=== PATIENT | male | born 1985 | race Caucasian/White ===

== ENCOUNTER 2018-06-29 18:37 | Inpatient (IN) | END 2018-07-01 17:30 | disposition left against medical advice (07) | DRG 720 | DX: A41.9 Sepsis, unspecified organism (principal); N17.0 Acute kidney failure with tubular necrosis; J69.0 Pneumonitis due to inhalation of food and vomit; G93.41 Metabolic encephalopathy; L89.159 Pressure ulcer of sacral region, unspecified stage; D63.8 Anemia in other chronic diseases classified elsewhere; E87.6 Hypokalemia; E83.42 Hypomagnesemia; F11.10 Opioid abuse, uncomplicated; F15.10 Other stimulant abuse, uncomplicated; F17.210 Nicotine dependence, cigarettes, uncomplicated; Z59.0 Homelessness; N18.9 Chronic kidney disease, unspecified; Z86.14 Personal history of Methicillin resistant Staphylococcus aureus infection ==

== ENCOUNTER 2021-03-14 13:49 | Inpatient (IN) | payer OTHER ==
[~2021-03-14] VITALS: Ht 182.9 cm; Wt 64.9 kg
--- NOTE | 2021-03-14 13:52 | NUR ---
PT CASSY FROM HIS TRAILER HOME C/O BLE PAIN WORST TO LLE W/ NOTED NON HEALING WOUND. PT IS AN IV DRUG USER W/ HX OF KIDNEY INFECTION WAS GETTING DIALYSIS 3 YEARS AGO. PT GOWNED AND PLACED ON MONITOR. AFEBRILE BRICK MOLDER HAND. AWAITING MD GALLOWAY.
--- NOTE | 2021-03-14 14:25 | NUR ---
DR STODDARD AT BEDSIDE FOR EVAL.
[2021-03-14] MEDS ORDERED: VANCOMYCIN 1 GM in IV D5W 250 ML IV ONE (14:30)
[2021-03-14] MEDS ORDERED: CEFTRIAXONE 1GM BAG (ER ONLY) 50 ML IV ONE ×2 (14:30→15:11)
[2021-03-14] MEDS ORDERED: IV NS 0.9% 1,000 ML BAG IV ONE (14:30)
--- NOTE | 2021-03-14 14:47 | NUR ---
U/S TECH AT BEDSIDE FOR DUPLEX ULTRASOUND.
[2021-03-14 15:11] LABS: BASOPHILS % (AUTO) 0.2 % (0.0-2.0); HEMATOCRIT 39 % (39-51); HEMOGLOBIN 12.2 g/dL (13.5-17.5); LYMPHOCYTES # (AUTO) 0.5 K/uL (0.8-4.8); LYMPHOCYTES % (AUTO) 2.5 % (20.0-44.0); MEAN CORPUSCULAR HGB CONC 32 g/dl (31.0-36.0); MEAN CORPUSCULAR VOLUME 73 fL (80-96); MONOCYTES # (AUTO) 0.9 K/uL (0.1-1.30); MONOCYTES % (AUTO) 4.2 % (2.0-12.0); NEUTROPHILS # (AUTO) 19.2 K/uL (1.8-8.9); NEUTROPHILS % (AUTO) 93.1 % (43.0-81.0); PLATELET COUNT (AUTO) 284 K/uL (150-450); WHITE BLOOD COUNT (AUTO) 20.6 K/uL (4.3-11.0)
[2021-03-14 15:34] LABS: ALBUMIN 2.5 g/dL (3.4-5.0); BILIRUBIN,DIRECT 0.2 mg/dL (0.0-0.2); BILIRUBIN,TOTAL 0.6 mg/dL (0.2-1.0); CALCIUM, SERUM 8.2 mg/dL (8.5-10.1); CREATININE 7.4 mg/dL (0.6-1.3); POTASSIUM 5.5 mmol/L (3.5-5.1); TOTAL PROTEIN, SERUM 8.5 g/dL (6.4-8.2)
[2021-03-14 16:27] LABS: BAND % (MANUAL) 12 % (0.0-5.0); LYMPHOCYTES % (MANUAL) 7 % (16-48); MONOCYTES % (MANUAL) 1 % (0-11.0); NEUTROPHILS % (MANUAL) 80 (42-76)
--- NOTE | 2021-03-14 16:40 | NUR ---
CALLED DR. RED [phone] STODDARD.
[2021-03-14] MEDS ORDERED: MAG HYDROX/AL HYDROX/SIMETH 30 ML UDC PO PRN (17:30)
[2021-03-14] MEDS ORDERED: ACETAMINOPHEN 325 MG TABLET PO PRN (17:30)
[2021-03-14] MEDS ORDERED: ZOLPIDEM TARTRATE 5 MG TABLET PO PRN (17:30)
[2021-03-14] MEDS ORDERED: HYDROCODONE/APAP 5/325MG TABLET PO PRN (17:30)
[2021-03-14] MEDS ORDERED: MAGNESIUM HYDROXIDE 30 ML UDC PO PRN (17:30)
[2021-03-14 17:51] LABS: BILIRUBIN,URINE SMALL (NEGATIVE); COLOR,URINE AMBER (YELLOW); LEUKOCYTE ESTERASE ,URINE Negative (NEGATIVE); NITRITE, URINE Negative (NEGATIVE); PH,URINE 5.5 (5.0-8.0); PROTEIN,URINE 100 mg/dl (NEGATIVE); UGLUCOSE 100 MG/DL mg/dL (NEGATIVE); UROBILINOGEN,URINE 0.2 EU/dL (0.2)
[2021-03-14] MEDS ORDERED: SODIUM POLYSTYRENE SULFONATE 15 G/60 ML BOTTLE PO ONE (18:00)
--- NOTE | 2021-03-14 18:10 | NUR ---
GOT BED ASSIGNMENT 107 AFTER THE CHANGE OF SHIFT PER HOUSE SUP.
[2021-03-14 18:17] LABS: BACTERIA,URINE Few /HPF (None Seen); COARSE GRANULAR CASTS,URINE Few /LPF (None Seen); SQUAMOUS EPITHELIAL CELL,UR Few /HPF (None Seen); URINE AMORPHOUS URATE Few /HPF (None Seen); WBC,URINE 0-2 /HPF (0-3)
[2021-03-14] MEDS ORDERED: MORPHINE SULFATE INJ 4 MG/ML DISP.SYRIN ONE (18:29)
[2021-03-14] MEDS ORDERED: CLINDAMYCIN IV RTU IN D5W 600 MG/50 ML PIGGYBACK IV SCH (18:30)
[2021-03-14] MEDS ORDERED: SODIUM POLYSTYRENE SULFONATE 15 G/60 ML BOTTLE ONE (18:30)
[2021-03-14] MEDS: MORPHINE SULFATE INJ 2 MG/ML DISP.SYRIN IV PRN (18:36)
[2021-03-14] MEDS ORDERED: ONDANSETRON HCL/PF 4 MG/2 ML VIAL ONE (18:39)
[2021-03-14] MEDS: ONDANSETRON HCL/PF 4 MG/2 ML VIAL IVP PRN (18:40)
--- NOTE | 2021-03-14 18:41 | NUR ---
03/14/2021 CM received notification patient is in need of HLOC . CM faxed referral to [facility] and [facility] per hospitalist request .
--- NOTE | 2021-03-14 19:35 | NUR ---
REPORT GIVEN TO AJIT LUQUE FOR JAMEY
--- NOTE | 2021-03-14 19:56 | NUR ---
ADMIT NOTE RECEIVED PATIENT FROM ER, TRANSFERRED TO ROOM 107. PATIENT IS AWAKE, ALERT, ORIENTED X3. ABLE TO MAKE NEEDS KNOWN. ON O2 2L VIA NASAL CANNULA, O2 SAT 98%. NO ACUTE RESPIRATORY DISTRESS NOTED. COMPLAINED OF MILD PAIN ON LOWER EXTREMITIES. SKIN ASSESSMENT DONE, NOTED WITH RIGHT LEG CELLULITIS AND EDEMA, RIGHT POSTERIOR LEG BLISTERS, LEFT LEG 10X6.5 CM WOUND AND EDEMA, RIGHT LOWER BACK ABRASION, AND RIGHT ARM SCAR. IV ACCESS ON LEFT AC #20 PATENT AND INTACT. NO SIGNS OF INFILTRATION. ORIENTED PATIENT TO STAFF, ROOM, AND CALL LIGHT. BED LOCKED AND IN LOWEST POSITION. CALL LIGHT WITHIN REACH. ALL NEEDS ANTICIPATED. Addendum: 03/15/21 at 0239 by ROLAND JANSEN RN PATIENT ADMITTED 03/14/211955. PROTONIX TAB 1800 NON-ADMINISTERED, PATIENT WAS STILL IN ER.
[2021-03-14] MEDS: PANTOPRAZOLE 40 MG TABLET.DR PO SCH (20:00)
[2021-03-14] MEDS ORDERED: PIPERACILLIN /TAZOBACTAM 2.25 G in IV D5W 50 ML IV SCH (20:00)
[2021-03-14] MEDS ORDERED: PIPERACILLIN /TAZOBACTAM 2.25 G VIAL IV ONE (20:51)
[2021-03-14] MEDS ORDERED: CLINDAMYCIN 900 MG/6 ML VIAL ONE (20:52)
[2021-03-14] MEDS: IV NS 0.9% 1,000 ML IV PRN (20:58)
[2021-03-14] MEDS: CLINDAMYCIN 900 MG in IV D5W 50 ML IV SCH (20:59)
[2021-03-14] MEDS: HEPARIN SODIUM, PORCINE 5000 UNITS/1 ML VIAL SQ SCH (21:08)
[2021-03-14] MEDS: PIPERACILLIN /TAZOBACTAM 2.25 G in IV D5W 50 ML IV SCH (21:44)
[2021-03-15] VITALS (26 sets, daily range): BP systolic 92–137; BP diastolic 39–77
[2021-03-15] MEDS: ONDANSETRON HCL/PF 4 MG/2 ML VIAL IVP PRN (02:37)
[2021-03-15] MEDS: MORPHINE SULFATE INJ 2 MG/ML DISP.SYRIN IV PRN ×3 (02:44→08:02)
[2021-03-15] MEDS ORDERED: PIPERACILLIN /TAZOBACTAM 2.25 G VIAL IV ONE (04:37)
[2021-03-15] MEDS: PIPERACILLIN /TAZOBACTAM 2.25 G in IV D5W 50 ML IV SCH ×3 (04:38→23:59)
[2021-03-15] MEDS: CLINDAMYCIN 900 MG in IV D5W 50 ML IV SCH ×3 (05:13→23:58)
--- NOTE | 2021-03-15 07:13 | NUR ---
RN NOTE PATIENT IS ALERT AND ORIENTED X3.ON O2 2L VIA NASAL CANNULA, O2 SAT 98%. NO SOB NOTED. IV ACCESS ON LEFT AC #20 PATENT AND INTACT. NO SIGNS OF INFILTRATION. ALL DUE MEDS GIVEN ORDERED. NEEDS ATTENDED PROMPTLY. BED LOCKED AND IN LOWEST POSITION. CALL LIGHT WITHIN REACH. WILL ENDORSE TO AM SHIFT.
[2021-03-15 07:18] LABS: BASOPHILS % (AUTO) 0.2 % (0.0-2.0); EOSINOPHILS % (AUTO) 0.2 % (0.0-6.0); HEMATOCRIT 32 % (39-51); HEMOGLOBIN 10.1 g/dL (13.5-17.5); LYMPHOCYTES # (AUTO) 0.6 K/uL (0.8-4.8); LYMPHOCYTES % (AUTO) 4.2 % (20.0-44.0); MEAN CORPUSCULAR HGB CONC 32 g/dl (31.0-36.0); MEAN CORPUSCULAR VOLUME 74 fL (80-96); MONOCYTES # (AUTO) 0.9 K/uL (0.1-1.30); MONOCYTES % (AUTO) 5.9 % (2.0-12.0); NEUTROPHILS # (AUTO) 13.5 K/uL (1.8-8.9); NEUTROPHILS % (AUTO) 89.5 % (43.0-81.0); PLATELET COUNT (AUTO) 219 K/uL (150-450); WHITE BLOOD COUNT (AUTO) 15.1 K/uL (4.3-11.0)
[2021-03-15 07:47] LABS: CALCIUM, SERUM 7.7 mg/dL (8.5-10.1); MAGNESIUM 2.4 mg/dL (1.8-2.4); PHOSPHORUS 7.3 mg/dL (2.5-4.9); POTASSIUM 5.6 mmol/L (3.5-5.1)
[2021-03-15 07:48] LABS: CREATININE 7.6 mg/dL (0.6-1.3)
[2021-03-15 07:49] LABS: THYROID STIMULATING HORMONE 1.098 uIU/mL (0.358-3.74)
[2021-03-15] MEDS: PANTOPRAZOLE 40 MG TABLET.DR PO SCH (07:50)
--- NOTE | 2021-03-15 07:58 | NUR ---
WOUND CARE CONSULT: PT PRESENTS WITH OPEN AREAS TO RT SIDE OF BACK, LARGE WOUND TO LEFT LOWER LEG AND SWELLING, TENDERNESS AND DISCOLORATION TO RT LOWER LEG, ALL PRESENT ON ADMISSION. SURGICAL AND DPM CONSULTS CALLED TO DR BA AND DR ESPINOZA. RECOMMENDATIONS MADE FOR SKIN PROTECTION. DISCUSSED WITH NURSING STAFF. DUE TO PT DISCOMFORT AND NAUSEA, PT NOT TURNED FOR FULL ASSESSMENT OF SKIN AT THIS TIME. MD IN AGREEMENT WITH PLAN OF CARE. Addendum: 03/15/21 at 0803 by ISABELLE LAKHANI WNDNU Amended: Links added.
[2021-03-15] MEDS: HEPARIN SODIUM, PORCINE 5000 UNITS/1 ML VIAL SQ SCH (09:00)
--- NOTE | 2021-03-15 09:47 | NUR ---
RECEIVED PATIENT SLEEPING IN BED, EASY TO AROUSE, C/O PAIN GIVEN PRN MORPHINE, EFFECTIVE AFTER 15 MIN, WOUND CARE CONSULT PERFORMED AND ASSESSED DISCUSSED TO TRANSFER OUT TO MORE SPECIALIZED UNIT FOR CARE, IN PROCESS OF MD, RIP SAW OPERATOR AND MBA INTERNSHIP TO TRANSFER PT OUT TO HIGHER ACUTE LEVEL OF CARE TO MEET NEEDS - BEING RESEARCHED FOR LOCATION OF WHERE TO TRANSFER AT THIS TIME, PT PRESENTS WITH OPEN AREAS TO RT SIDE OF BACK, LARGE WOUND TO LEFT LOWER LEG AND SWELLING NOTED, TENDERNESS AND DISCOLORATION TO RT LOWER LEG, ALL PRESENT ON ADMISSION, WILL CONTINUE CARE UNTIL DESTINATION OF TRANSFER IS CONFIRMED.
[2021-03-15] MEDS ORDERED: HYDROMORPHONE INJ 2 MG/ML DISP.SYRIN ONE (11:28)
[2021-03-15] MEDS ORDERED: INSULIN REGULAR, HUMAN 100 UNIT/ML 10 ML VIAL IV ONE (11:30)
[2021-03-15] MEDS ORDERED: Calcium Gluconate 1GM/10ML 4.65 MEQ in IV D5W 50 ML IV ONE (11:30)
[2021-03-15] MEDS ORDERED: DEXTROSE 50%-WATER 50 ML DISP.SYRIN IVP ONE (11:30)
[2021-03-15] MEDS ORDERED: SODIUM BICARBONATE SYR 50 MEQ/50 ML DISP.SYRIN IV ONE (11:30)
--- NOTE | 2021-03-15 11:50 | NUR ---
RN NOTES RECEIVED PT FROM ROOM 107 TO ICU ROOM 258, PT IS A/Ox3, ON 4L O2 NC , O2 SAT WNL, ON TELE SR HR IN 80'S , IVF NS AT 75CC/HR RUNNING VIA L AC IV SITE G 20 , PT IS NPO FOR SURGERY AND HD CATH PLACEMENT AT THIS TIME, SR UP x3 , CALL LIGHT WITHIN EASY REACH, BED LOCKED AND IN LOWEST POSITION, CONTINUE TO MONITOR.
[2021-03-15] MEDS ORDERED: HYDROMORPHONE INJ 2 MG/ML DISP.SYRIN IV PRN (12:00)
[2021-03-15] MEDS: IV NS 0.9% 1,000 ML IV PRN (12:03)
[2021-03-15] MEDS ORDERED: ROCURONIUM BROMIDE 50 MG/5 ML ONE ×2 (12:12)
[2021-03-15] MEDS ORDERED: ANESTHESIA TRAY IN PYXIS 1 EA TRAY MC ONE (12:15)
[2021-03-15] MEDS ORDERED: LIDOCAINE 1% INJ 50 ML MDV IJ ONE (12:16)
[2021-03-15] MEDS ORDERED: BUPIVACAINE MPF 0.5% W/EPI INJ 30 ML VIAL ONE (12:16)
[2021-03-15] MEDS ORDERED: FENTANYL PF 250MCG/5ML AMPUL ONE (12:24)
--- NOTE | 2021-03-15 12:30 | NUR ---
RN NOTES PT GOING TO OR AT THIS TIME .
[2021-03-15] MEDS ORDERED: FAMOTIDINE/PF INJ 20 MG/2 ML VIAL IV ONE (12:45)
[2021-03-15] MEDS ORDERED: HYDROMORPHONE INJ 2 MG/ML DISP.SYRIN IV ONE (13:00)
[2021-03-15 14:59] LABS: CALCIUM, SERUM 7.4 mg/dL (8.5-10.1); POTASSIUM 4.6 mmol/L (3.5-5.1)
[2021-03-15 15:00] LABS: CREATININE 7.7 mg/dL (0.6-1.3)
[2021-03-15 15:05] LABS: ALBUMIN 1.5 g/dL (3.4-5.0); BILIRUBIN,TOTAL 0.7 mg/dL (0.2-1.0); TOTAL PROTEIN, SERUM 5.9 g/dL (6.4-8.2)
[2021-03-15 15:21] LABS: MAGNESIUM 2.6 mg/dL (1.8-2.4); PHOSPHORUS 7.5 mg/dL (2.5-4.9)
[2021-03-15] MEDS: Sodium Bicarbonate 50 MEQ in IV D5/0.45 NACL 1,000 ML IV SCH ×2 (15:23→21:07)
--- NOTE | 2021-03-15 15:23 | NUR ---
RN NOTES RECEIVED PT FROM OR , INTUBATED, TOLERATING VENT SETTING WELL, O2 SAT WNL, ON TELE SR-ST , R NECK IJ HD CATH AND LEFT AC IV SITES CLEAN, DRY AND INTACT , BICARB DRIP AT 200CC/HR RUNNING , PROPOFOL AT 5 MCG/KG /MIN RUNNING FOR SEDATION , MILD AGITATION NOTED, BETTS INSERTED PER MD ORDER , DRESSING TO FLOR[place], LE WITH AC WRAP ON IT , CLEAN , DRY AND INTACT, SR UP x3, CALL LIGHT WITHIN EASY REACH , BED LOCKED AND IN LOWEST POSITION, CONTINUE TO MONITOR.
--- NOTE | 2021-03-15 15:40 | NUR ---
RT PATIENT REC'D ORALLY INTUBATED FROM POST OP OR. ETT 7.0 SECURED AT 23CM TOP LIP. PLACED ON [facility] VENT PER MD ORDERS. ALARMS CHECKED + AUDIBLE. AMBU BAG AT [facility]. AIRWAY CLEAR AND PATENT, NO SECRETIONS. Addendum: 03/15/21 at 1726 by JARED JAIN RT Amended: Links added.
[2021-03-15] MEDS: PROPOFOL 100 ML IV PRN ×2 (15:42→21:09)
--- NOTE | 2021-03-15 15:58 | NUR ---
SS note SS received consult request for homelessness. SS will follow up at a later time.
[2021-03-15 16:57] LABS: ABG BASE EXCESS -10.2 mmol/L; ABG OXYGEN SATURATION 99.5 % (92.0-98.5); ABG PCO2 32.2 mmHg (35.0-45.0); ABG PH 7.295 (7.350-7.450); ABG PO2 214.6 mmHg (75.0-100.0); AaDO2 33.6 mmHg; COHb 0.5 % (0.5-1.5); MetHb 0.3 % (0.0-1.5); O2Hb 98.7 % (94.0-97.0); SITE, ABG Right Radial
--- NOTE | 2021-03-15 18:13 | NUR ---
RN NOTES PT REMAINS INTUBATED AND SEDATED, ON DIPRIVAN AT 30 MCG/KG/MIN , BICARB DRIP AT 200CC/HR , TOLERAING VENT SETTING WELL, O2 SAT WNL, DRESSING TO FLOR[place] LE CLEAN, DRY AND INTACT, NO DISTRESS NOTED , WILL ENDORSE TO ANIMAL CARE SUPERVISOR NURSE FOR CONTINUITY OF CARE.
--- NOTE | 2021-03-15 19:51 | NUR ---
PHONOGRAPH NEEDLE TIP MAKER.INITIAL ASSESSMENT.RECEIVED THE PT REST ON THE BED. ORALLY INTUBATED. SEDATED WITH PROPOFOL ETT #7-0, LIP 23CMS,AC 16,TV 550, PEEP 5. SAT 98%. COMPLAINT OPERATOR SHOWING SNR. IV LT AC 20G, RT IJ HD CATH.FC PATENT. HOB ELEVATED. FC PATENT. PROPOFOL 30MCG/KG/MIN, IVF D51/2NS 200ML/H. FLORENCE SOFT WRIST RESTRAINT CHECKED AND RELEASED.NO INJURY OR REDNESS NOTED.
--- NOTE | 2021-03-15 19:57 | NUR ---
RECEIVED PT INTUBATED 7.0 ETT SECURED AT 23CM. NO RESP DISTRESS. PT TOLERATING VENT SETTINGS. SX'D SMALL CLEAR THIN SECRETIONS. VENT ALARMS SET AND AUDIBLE. AMBU BAG AT BEDSIDE. Addendum: 03/15/21 at 1959 by KYAW DANIEL RT Amended: Links added.
[2021-03-15] MEDS: IV NS 0.9% 250 ML IV PRN (21:07)
--- NOTE | 2021-03-15 21:29 | NUR ---
rn picu. blood culture result notified md mcfarlane. no new order received.
[2021-03-16] VITALS (43 sets, daily range): BP systolic 86–132; BP diastolic 50–76
[2021-03-16] MEDS: HEPARIN SODIUM, PORCINE 5000 UNITS/1 ML VIAL SQ SCH ×3 (00:04→21:00)
--- NOTE | 2021-03-16 02:02 | NUR ---
rn picu. hd done. no fluid removed.
[2021-03-16] MEDS: PROPOFOL 100 ML IV PRN (02:07)
[2021-03-16] MEDS: Sodium Bicarbonate 50 MEQ in IV D5/0.45 NACL 1,000 ML IV SCH ×3 (02:51→22:01)
[2021-03-16] MEDS: ONDANSETRON HCL/PF 4 MG/2 ML VIAL IVP PRN (02:55)
[2021-03-16 04:24] LABS: CALCIUM, SERUM 7.1 mg/dL (8.5-10.1); CREATININE 6.1 mg/dL (0.6-1.3); POTASSIUM 4.5 mmol/L (3.5-5.1)
[2021-03-16] MEDS: PIPERACILLIN /TAZOBACTAM 2.25 G in IV D5W 50 ML IV SCH ×3 (04:29→19:25)
[2021-03-16] MEDS: CLINDAMYCIN 900 MG in IV D5W 50 ML IV SCH ×3 (04:29→21:57)
[2021-03-16 04:55] LABS: BASOPHILS % (AUTO) 0.2 % (0.0-2.0); EOSINOPHILS % (AUTO) 0.1 % (0.0-6.0); LYMPHOCYTES # (AUTO) 0.4 K/uL (0.8-4.8); LYMPHOCYTES % (AUTO) 2.3 % (20.0-44.0); MEAN CORPUSCULAR HGB CONC 34 g/dl (31.0-36.0); MEAN CORPUSCULAR VOLUME 71 fL (80-96); MONOCYTES # (AUTO) 0.9 K/uL (0.1-1.30); MONOCYTES % (AUTO) 5.1 % (2.0-12.0); NEUTROPHILS # (AUTO) 15.6 K/uL (1.8-8.9); NEUTROPHILS % (AUTO) 92.3 % (43.0-81.0); PLATELET COUNT (AUTO) 239 K/uL (150-450); RED BLOOD CELL COUNT(AUTO) 2.47 MIL/uL (4.5-6.0); WHITE BLOOD COUNT (AUTO) 16.9 K/uL (4.3-11.0)
[2021-03-16 04:59] LABS: HEMATOCRIT 18 % (39-51)
[2021-03-16 05:01] LABS: HEMOGLOBIN 5.9 g/dL (13.5-17.5)
[2021-03-16 05:30] LABS: BAND % (MANUAL) 9 % (0.0-5.0); BASOPHILS % (MANUAL) 0 % (0.0-2.0); EOSINOPHILS % (MANUAL) 0 % (0-4); LYMPHOCYTES % (MANUAL) 2 % (16-48); MONOCYTES % (MANUAL) 1 % (0-11.0); NEUTROPHILS % (MANUAL) 88 (42-76)
--- NOTE | 2021-03-16 05:30 | NUR ---
multicut line operator. pt self extubated at 0640. pt awake, alert.calm, oxygen 3 L VIA N/C.SAT 100%. NO ACUTE DISTRESS NOTED. RESTRAINT D/C. H&H 5.03/20. PAGED MD [place] SUPERVISOR TREATING AND PUMPING WAITING FOR CALL BACK
--- NOTE | 2021-03-16 07:30 | NUR ---
ORACLE FUSION CONSULTANT OPENING NOTES Received patient in bed on 3lpm via n/c with 02 sat of 98%. Patient is alert and oriented. Breathing even and unlabored. Picc line running iv fluids at 200 cc/hour. F/c intact and hanging to gravity with clear yellow urine. Per report, patient hemoglobin is critically low and attempts for reach MD perr initiated. Patient's vitals WNL. NO c/o sob. Awaiting md call return.
[2021-03-16] MEDS: PANTOPRAZOLE 40 MG TABLET.DR PO SCH (08:39)
[2021-03-16 09:35] LABS: HEMOGLOBIN 5.4 g/dL (13.5-17.5)
[2021-03-16] MEDS: MORPHINE SULFATE INJ 4 MG/ML DISP.SYRIN IV PRN ×2 (09:57→23:10)
--- NOTE | 2021-03-16 11:00 | NUR ---
CT OF RIGHT LOWER LEG DONE AND PATIENT JING WELL
--- NOTE | 2021-03-16 11:46 | NUR ---
RIGHT LOWER LEG DRESSING CHANGE DONE, PACKED WITH BETADINE MOIST GAUZE AND ABD AND KERLIX. LEFT LOWER EXTREMITY TREATMENT DONE BY MD LEIJA.
--- NOTE | 2021-03-16 13:47 | NUR ---
SS Consult requested. SW will follow up at a later time
--- NOTE | 2021-03-16 14:25 | NUR ---
One bag of prbc hung and patient monitored closely. no s/s of allergic reaction. Vitals WNL.
[2021-03-16 15:23] LABS: ABG BASE EXCESS 0.3 mmol/L; ABG OXYGEN SATURATION 97.7 % (92.0-98.5); ABG PCO2 32.9 mmHg (35.0-45.0); ABG PH 7.479 (7.350-7.450); ABG PO2 105.6 mmHg (75.0-100.0); AaDO2 4.7 mmHg; COHb 0.7 % (0.5-1.5); MetHb 0.2 % (0.0-1.5); O2Hb 96.8 % (94.0-97.0); SITE, ABG Right Radial; VENT MODE, BG room air
[2021-03-16] MEDS ORDERED: VANCOMYCIN 1 GM in IV D5W 250ml IV SCH (16:00)
--- NOTE | 2021-03-16 17:53 | NUR ---
Patient tolerated 1 unit of prb without any s/s of distress/reactions.
--- NOTE | 2021-03-16 19:13 | NUR ---
DEAN OF STUDENT SERVICES CLOSING NOTES Received patient in bed on room air with 02 sat of 99%. Patient is alert and oriented. Breathing even and unlabored. Picc line running iv fluids at 200 cc/hour. F/c intact and hanging to gravity with clear yellow urine. Seen by MD Belle and repairer typewriter updated MD on patient's condition. Patient's vitals WNL. HD to be done today. Oncoming nurse to follow up on H/H and HD.
--- NOTE | 2021-03-16 20:10 | NUR ---
REPORTEDD TO DR ADAM JEFFERSON ONCALLTHAT PT HGB 6 AND HCT 18 POST 1PRBC WITH ORDER FOR ANOTHER 1 UNIT PRBC NOTED AND CARRIED OUT
[2021-03-16] MEDS ORDERED: FUROSEMIDE 40 MG/4 ML VIAL IV ONE (21:00)
--- NOTE | 2021-03-16 22:10 | NUR ---
BLOOD AVAILABLE NOW DERMATOLOGY PHYSICIAN ASSISTANT TO LAB, TRANSFUSION VERIFICATION DONE WITH OTHER NURSE V.S CHECKED AND RECORDED, PT IS AA/O X4 ABLE TO VERBALIZED WILL START TRANSFUSION WITH HD WILL CONT TO MONITOR
--- NOTE | 2021-03-16 23:00 | NUR ---
BLOOD TRANSFUSION COMPLETED WITH LATEST BP 123/71 HR 58 TEMP 97.4 PT IS AAOX4 SPO2 95-97% NO SIGN OF ANY BLOOD TRANSFUSION REACTION WILL CONT TO MONITOR
--- NOTE | 2021-03-16 23:10 | NUR ---
HD COMPLETED TOLERATING WELL V,S CHECKED AND RECORDED, PT IS AA/O X4 PAIN MEDICATION GIVEN PER PT REQUEST WITH LOWER LEG PAIN 03/12, NO SIGN OF RESPIRATORY DISTRESS WILL CONT TO MONITOR
[2021-03-16] MEDS ORDERED: FUROSEMIDE 40 MG/4 ML VIAL ONE (23:15)
[2021-03-17] VITALS (25 sets, daily range): BP systolic 104–126; BP diastolic 55–83
[2021-03-17] MEDS: PIPERACILLIN /TAZOBACTAM 2.25 G in IV D5W 50 ML IV SCH ×3 (03:34→20:33)
[2021-03-17] MEDS: Sodium Bicarbonate 50 MEQ in IV D5/0.45 NACL 1,000 ML IV SCH (03:34)
[2021-03-17] MEDS: CLINDAMYCIN 900 MG in IV D5W 50 ML IV SCH ×3 (04:14→21:34)
[2021-03-17 04:54] LABS: BILIRUBIN,TOTAL 0.5 mg/dL (0.2-1.0); CREATININE 4.8 mg/dL (0.6-1.3); PHOSPHORUS 3.9 mg/dL (2.5-4.9); POTASSIUM 3.6 mmol/L (3.5-5.1); TOTAL PROTEIN, SERUM 5.5 g/dL (6.4-8.2)
[2021-03-17 05:01] LABS: ALBUMIN 1.4 g/dL (3.4-5.0)
[2021-03-17 05:57] LABS: BASOPHILS % (AUTO) 0.2 % (0.0-2.0); HEMATOCRIT 21 % (39-51); HEMOGLOBIN 7.1 g/dL (13.5-17.5); LYMPHOCYTES % (AUTO) 8.2 % (20.0-44.0); MEAN CORPUSCULAR HGB CONC 34 g/dl (31.0-36.0); MEAN CORPUSCULAR VOLUME 77 fL (80-96); MONOCYTES # (AUTO) 1.3 K/uL (0.1-1.30); MONOCYTES % (AUTO) 10.8 % (2.0-12.0); NEUTROPHILS % (AUTO) 80.8 % (43.0-81.0); PLATELET COUNT (AUTO) 174 K/uL (150-450); WHITE BLOOD COUNT (AUTO) 12.4 K/uL (4.3-11.0)
--- NOTE | 2021-03-17 07:30 | NUR ---
RECLAMATION ENGINEER OPENING NOTES Received patient in bed on room ai5r with 02 sat of 98%. Patient is alert and oriented. Breathing even and unlabored. Picc line running iv fluids at 200 cc/hour. F/c intact and hanging to gravity with clear yellow urine. Patient's vitals WNL. NO c/o sob. Will continue to monitor. Call light with in reach.
[2021-03-17] MEDS: HEPARIN SODIUM, PORCINE 5000 UNITS/1 ML VIAL SQ SCH ×2 (09:00→21:00)
[2021-03-17] MEDS: PANTOPRAZOLE 40 MG TABLET.DR PO SCH (09:31)
--- NOTE | 2021-03-17 10:00 | NUR ---
ARNEL JEFFERSON results reported to MD Belle with no new orders.
--- NOTE | 2021-03-17 13:00 | NUR ---
Patient seen by MD Ramos, per MD patient to be NPO after midnight and consents obtained for tomorrow procedure for Right lower leg. Wound care done and patient kept clean and dry.
--- NOTE | 2021-03-17 14:25 | NUR ---
Patient transferred to [facility]. Bedside report given to AJIT Sanchez. Rn made aware regarding procedure for 03/18/[address] patient on NPO after dinner. Patient in stable condition. Endorsement done for ferlecit to be given.
--- NOTE | 2021-03-17 14:30 | NUR ---
TELE/RN NOTES RECEIVED REPORT FROM ICU NURSE, PATIENT IS ALERT AND ORIENTED X4. PATIENT IN NO APPARENT RESPIRATORY DISTRESS NOTED. NO COMPLAINED OF PAIN. VITAL SIGN BP 112/70 PULSE 80 RR 20 TEMP 97.4 SAO2 100%. WILL CONTINUE TO MONITOR.
[2021-03-17] MEDS: SOD FERRIC GLUC 125 MG in IV NS 0.9% 100 ML IV SCH (15:02)
--- NOTE | 2021-03-17 19:00 | NUR ---
MS RN OPENING NOTE RECEIVED PT AWAKE IN BED. A/O X4. PT IS STABLE ON ROOM AIR. NO SOB OR S/S OF RESPIRATORY DISTRESS NOTED. PT HAS NO C/O PAIN OR DISCOMFORT AT THIS TIME. PT NOTED WITH RIGHT INTER JUUGULAR HD CATH IN PLACE, R U ARM PICCLINE AND LEFT AC G#20 INTACT, PATENT,AND FLUSHING WELL.BETTS CATHETER IN PLACE DRAINING CLEAR, YELLOW URINE. SAFETY PRECAUTIONS MAINTAINED. BED IN LOWEST LOCKED POSITION, HOB ELEVATED, SIDE RAILS UP X2. CALL LIGHT AND TABLE WITHIN REACH. WILL CONTINUE WITH PLAN OF CARE.
--- NOTE | 2021-03-17 19:16 | NUR ---
TELE/RN CLOSING NOTES PATIENT IS ALERT AND ORIENTED X4. PATIENT IS ON ROOM AIR. PATIENT IN NO APPARENT RESPIRATORY DISTRESS NOTED. NO COMPLAINED OF PAIN NOTED AT THIS TIME. TELE MONITOR READING SINUS RHYTHM 76 BPM. SEEN AND EXAMINED BY MD WITH ORDERS MADE AND CARRIED OUT. ALL DUE MEDICATIONS WAS GIVEN. SAFETY PRECAUTIONS WAS IN PLACED. BED IN LOWEST POSITION AND LOCKED. SIDERAILS UP X2. CALL LIGHT WITHIN REACH. WILL ENDORSED TO MOLDED FRAMES ASSEMBLER FOR JAMEY.
[2021-03-18] VITALS (9 sets, daily range): BP systolic 113–131; BP diastolic 65–84
[2021-03-18] MEDS: PIPERACILLIN /TAZOBACTAM 2.25 G in IV D5W 50 ML IV SCH ×3 (04:03→20:44)
--- NOTE | 2021-03-18 05:25 | NUR ---
RECEIVED REPORT FROM LABORATORY ON PT'S BLOOD CULTURE GRAM POSITIVE COCCI AND CLUSTERS, RONIT CLARK AND CHARGE NURSE BRISA MADE AWARE. WILL ENDORSE TO ONCOMING RN.
[2021-03-18] MEDS: CLINDAMYCIN 900 MG in IV D5W 50 ML IV SCH ×3 (05:33→21:48)
--- NOTE | 2021-03-18 06:30 | NUR ---
MS/RN CLOSING NOTE PATIENT IS ON BED AT THIS TIME. AWAKE ALERT AND ORIENTED X4. PATIENT IS ON ROOM AIR. PATIENT IN NO APPARENT RESPIRATORY DISTRESS NOTED. NO COMPLAINED OF PAIN NOTED AT THIS TIME. ABLE TO MAKE NEEDS KNOWN. BETTS DRAINING CLEAR, YELLOW URIN. NO ADVERSE EFFECTS NOTED,ALL NEEDS MET AND ATTENDED TO. WILL ENDORSE TO ONCOMING NURSE FOR JAMEY .
[2021-03-18 07:22] LABS: CALCIUM, SERUM 7.5 mg/dL (8.5-10.1); CREATININE 6.7 mg/dL (0.6-1.3); POTASSIUM 3.7 mmol/L (3.5-5.1)
[2021-03-18] MEDS: PANTOPRAZOLE 40 MG TABLET.DR PO SCH (07:30)
--- NOTE | 2021-03-18 07:30 | NUR ---
PROGRAM PRODUCTION SPECIALIST OPENING NOTE RECEIVED PT AWAKE IN BED. A/O X4. ON ROOM AIR, TOLERATING WELL. NO SOB OR S/S OF RESPIRATORY DISTRESS NOTED. PT HAS NO C/O PAIN OR DISCOMFORT AT THIS TIME. PT NOTED WITH RIGHT INTER JUGULAR HD CATH IN PLACE, R U ARM PICC LINE AND LEFT AC G#20 INTACT, PATENT,AND FLUSHING WELL.BETTS CATHETER IN PLACE DRAINING CLEAR, YELLOW URINE. ON EXTERNAL MONITOR SHOWING SR HR AT 80'S. REINFORCED NPO. SAFETY PRECAUTIONS IN PLACE. BED IN LOWEST LOCKED POSITION, HOB ELEVATED, SIDE RAILS UP X2. CALL LIGHT AND TABLE WITHIN REACH. WILL CONTINUE TO MONITOR ACCORDINGLY.
[2021-03-18] MEDS: HEPARIN SODIUM, PORCINE 5000 UNITS/1 ML VIAL SQ SCH ×2 (09:00→21:00)
--- NOTE | 2021-03-18 10:21 | NUR ---
SS Note: SW spoke with the pt.'s nurse, Brandy to see if pt. will be discharged today. Per Brandy, the pt. will be having a surgical procedure today. Noted. SW will assess pt. later today or tomorrow to form a safe & proper discharge plan. Pt. is currently experiencing homelessness. SS to follow up.
[2021-03-18] MEDS ORDERED: ANESTHESIA TRAY IN PYXIS 1 EA TRAY MC ONE (10:34)
[2021-03-18] MEDS ORDERED: POLYMYXIN B SULFATE 500,000 UNITS ONE (11:10)
[2021-03-18] MEDS ORDERED: BUPIVACAINE MPF W/EPI 0.25% 30 ML VIAL ONE (11:10)
[2021-03-18] MEDS ORDERED: BUPIVACAINE 0.25% 75 MG/30 ML VIAL ONE (11:11)
--- NOTE | 2021-03-18 13:04 | NUR ---
RN NOTES PATIENT WAS PICKED UP BY AGNIESZKA FROM O.R FOR PROCEDURE TODAY. REPORT WAS GIVEN TO AJIT BEAN. LEFT UNIT IN STABLE CONDITION.
[2021-03-18] MEDS ORDERED: SUCCINYLCHOLINE CHLORIDE 20 MG/ML VIAL ONE (13:14)
[2021-03-18] MEDS ORDERED: FENTANYL PF 100MCG/2ML AMPUL ONE (13:14)
[2021-03-18] MEDS: SOD FERRIC GLUC 125 MG in IV NS 0.9% 100 ML IV SCH (14:00)
[2021-03-18] MEDS ORDERED: VANCOMYCIN 500 MG in IV D5W 100 ML IV PRN (14:00)
[2021-03-18] MEDS ORDERED: HYDROMORPHONE INJ 2 MG/ML DISP.SYRIN ONE (14:21)
--- NOTE | 2021-03-18 16:07 | NUR ---
CM/RN Hep panel Hepatitis labs ordered in preparation for discharge as patient may require outpatient HD.
[2021-03-18] MEDS ORDERED: HYDROMORPHONE 1 MG/1 ML DISP.SYRIN ONE (16:10)
[2021-03-18 16:24] LABS: HEMOGLOBIN 6.6 g/dL (13.5-17.5)
--- NOTE | 2021-03-18 17:05 | NUR ---
RN NOTES RECEIVED PATIENT FRO O.R ACCOMPANIED BY ZENOBIA FONG. PATIENT IS AWAKE, A&O X 4, NOT I ANY FORM OF ACUTE DISTRESS. VS WITHIN NORMAL LIMITS. FC TO URINE BAG DRAINING YELLOW COLORED URINE. S/P EXTENSIVE DEBRIDEMENT OF BLE. NOTED WITH WOUND VACC ON RLE, KEPT ELEVATED ORDERED. IV ACCESS ON JESS PICC LINE, PATENT AND FLUSHES WELL, IV ACCESS ON LAC G#18. FOR BLOOD TRANSFUSION OF 1 UNIT PRBC AWAITING AVAILABILITY. WILL CONTINUE TO MONITOR.
--- NOTE | 2021-03-18 18:08 | NUR ---
RN NOTES BLOOD TRANSFUSION STARTED, VS TAKEN AND RECORDED. BLOOD PRODUCTS VERIFIED BY 2 RN.
--- NOTE | 2021-03-18 18:23 | NUR ---
RN NOTES PATIENT TOLERATING BLOOD TRANSFUSION. VS TAKEN AND RECORDED. WILL CONTINUE TO MONITOR ACCORDINGLY.
--- NOTE | 2021-03-18 18:45 | NUR ---
FISH NET STRINGER CLOSING NOTES PATIENT IN BED, PATIENT IS AWAKE, A&O X 4, NOT IN ANY FORM OF ACUTE DISTRESS. VS WITHIN NORMAL LIMITS. FC TO URINE BAG DRAINING YELLOW COLORED URINE. S/P EXTENSIVE DEBRIDEMENT OF BLE. NOTED WITH WOUND VACC ON RLE, KEPT RLE ELEVATED ORDERED. IV ACCESS ON JESS PICC LINE, PATENT AND FLUSHES WELL ONGOING BLOOD TRANSFUSION, NO UNTOWARD S/SX NOTED AT THIS TIME, IV ACCESS ON LAC G#18, PATENT AND FLUSHES WELL. ALL NEEDS ATTENDED AND MET. WILL ENDORSE TO ONCOMING SHIFT FOR JAMEY.
--- NOTE | 2021-03-18 21:59 | NUR ---
CEO NOTES Patient's heparin was held because the latest HGB and HCT levels were critically low (HGB=6.6 and HCT=19).
[2021-03-18] MEDS: LORAZEPAM 1 MG TABLET PO PRN (22:12)
[2021-03-19] VITALS: BP 119/69
[2021-03-19 04:00] VITALS: BP 118/68
[2021-03-19] MEDS: PIPERACILLIN /TAZOBACTAM 2.25 G in IV D5W 50 ML IV SCH ×3 (04:27→20:18)
[2021-03-19] MEDS: CLINDAMYCIN 900 MG in IV D5W 50 ML IV SCH (05:50)
[2021-03-19 06:47] LABS: CALCIUM, SERUM 6.7 mg/dL (8.5-10.1); POTASSIUM 4.2 mmol/L (3.5-5.1)
[2021-03-19 06:52] LABS: CREATININE 7.9 mg/dL (0.6-1.3)
[2021-03-19 07:25] LABS: BASOPHILS % (AUTO) 0.1 % (0.0-2.0); EOSINOPHILS % (AUTO) 0.2 % (0.0-6.0); HEMATOCRIT 23 % (39-51); HEMOGLOBIN 7.8 g/dL (13.5-17.5); LYMPHOCYTES # (AUTO) 1.6 K/uL (0.8-4.8); LYMPHOCYTES % (AUTO) 11.3 % (20.0-44.0); MEAN CORPUSCULAR HGB CONC 33 g/dl (31.0-36.0); MEAN CORPUSCULAR VOLUME 80 fL (80-96); MONOCYTES # (AUTO) 2.5 K/uL (0.1-1.30); NEUTROPHILS # (AUTO) 9.7 K/uL (1.8-8.9); NEUTROPHILS % (AUTO) 70.4 % (43.0-81.0); PLATELET COUNT (AUTO) 208 K/uL (150-450); RED BLOOD CELL COUNT(AUTO) 2.93 MIL/uL (4.5-6.0); WHITE BLOOD COUNT (AUTO) 13.8 K/uL (4.3-11.0)
[2021-03-19] MEDS: PANTOPRAZOLE 40 MG TABLET.DR PO SCH (07:34)
--- NOTE | 2021-03-19 07:36 | NUR ---
TRAFFIC SAFETY ADMINISTRATOR OPENING NOTES PATIENT IS CURRENTLY RESTING IN BED. PATIENT'S A/Ox4. PATIENT'S ON ROOM AIR WITH NO RESPIRATORY DISTRESS NOTED. PATIENT'S CONNECTED TO A TELE MONITOR WITH NO CARDIAC DISTRESS NOTED. FC TO URINE BAG DRAINING YELLOW COLORED URINE. S/P EXTENSIVE DEBRIDEMENT OF BLE ON 03/18. PATIENT HAS A JESS PICC LINE AND AN IV ACCESS ON LAC G#20, WHICH ARE BOTH INTACT, PATENT, AND FLUSHING WELL. SAFETY MEASURES IN PLACE: BED LOCKED, BED ALARM ON, SIDE RAILS UPX3, AND CALL LIGHT WITHIN REACH OF THE PATIENT. ENDORSED CARE TO THE DAY SHIFT NURSE.
--- NOTE | 2021-03-19 07:45 | NUR ---
PUBLIC RELATIONS ANALYST OPENING NOTES RECEIVED PATIENT IN BED, AWAKE, A&O X 4, NOT IN ANY FORM OF ACUTE DISTRESS. WITH O2 VIA NC AT 2LPM SATURATING WELL, NO SOB NOTED. FC TO URINE BAG DRAINING YELLOW COLORED URINE. NOTED WITH WOUND VACC ON RLE, KEPT RLE ELEVATED ORDERED. IV ACCESS ON JESS PICC LINE, PATENT AND FLUSHES WELL, IV ACCESS ON LAC G#18, PATENT AND FLUSHES WELL. SAFETY PRECAUTIONS IN PLACE: BED ON LOWEST LOCKED POSITION, SIDE RAILS UP X 2, KEPT CALL LIGHT WITHIN EASY REACH. WILL CONTINUE TO MONITOR ACCORDINGLY. Addendum: 03/19/21 at 0755 by IVONE HENRY RN PATIENT ON EXTERNAL MONITOR SHOWING SR HR AT 90'S
[2021-03-19 08:00] VITALS: BP 111/67
--- NOTE | 2021-03-19 08:04 | NUR ---
WOUND CARE CONSULT: PT PRESENTS WITH I WOUND VAC TO RT LOWER EXTREMITY. VAC FUNCTIONING WELL WITH 400cc RED DRAINAGE IN CANISTER. DISCUSSED WITH DR ESPINOZA. PER DPM, VAC DRESSING TO BE LEFT IN PLACE TIL EARLY NEXT WEEK. DISCUSSED WITH NURSING STAFF. Addendum: 03/19/21 at 0841 by ISABELLE LAKHANI WNDNU ABRASIONS TO RT SIDE OF BACK NOTED TO BE PRESENT ON ADMISSION. RECOMMENDATIONS MADE FOR SKIN PROTECTION AND WOUND CARE. DISCUSSED WITH NURSING STAFF.
[2021-03-19] MEDS: HEPARIN SODIUM, PORCINE 5000 UNITS/1 ML VIAL SQ SCH ×2 (08:17→21:34)
--- NOTE | 2021-03-19 08:39 | NUR ---
WOUND CARE: WOUND VAC CANISTER CHANGED WITH 400cc DRAINAGE (SEROSANGUINOUS).
[2021-03-19 09:46] LABS: LYMPHOCYTES % (MANUAL) 8 % (16-48); MONOCYTES % (MANUAL) 18 % (0-11.0); NEUTROPHILS % (MANUAL) 74 (42-76)
[2021-03-19 12:00] VITALS: BP 103/57
--- NOTE | 2021-03-19 13:15 | NUR ---
SS consult SS consult requested for homelessness. Pt is a 35-year-old, male. SW met with pt at his bedside in the med-surg unit. Pt presented with a depressed mood and flat affect. Pt did not make appropriate eye contact. Pt appeared appropriately groomed and well-dressed. Per chart, pt was brought in to the hospital on 03/14/21 for cellulitis. Pt stated that he has been living in an for the last year. Pt has access to social support from his friends who lives nearby and his sister in [place]. Pt stated that his mother recently and he was "really close to her." Pt stated that he has been receiving [employer] as a source of income since the pandemic. Pt reported that he is ambulatory. Pt reported current substance abuse and stated that he regularly uses heroin, methamphetamine and Xanax. Pt stated that he uses these substances daily, around 3x/day. Pt reported that he has a history of tx for his substance use from 6 years ago, which includes medication-assisted treatment (Suboxone) while he was at the treatment center. Pt denied hx of mental illness and hx of hallucinations. Pt denied current SI/HI. SW offered the pt homeless, substance use and medication-assisted treatment center resources. Pt accepted the resources and thanked SW. Pt stated that he would follow up with the medication-assisted treatment resources. Pt appears to be in the pre-contemplation stage of his heroin use. Pt signed the homeless waiver and SW filed the waiver in the pt's chart. Pt plans to be D/C to a SNF. CMG to F/U with SNF placement. Plan: Pt plans to be D/C to a SNF once he is medically cleared. CMG to F/U with SNF placement. No further SS intervention at this time, however, SS will remain available as needed. RESOURCES: MEDICATION-ASSISTED TREATMENT CENTERS: [facility]: [address] [place] [address] Intake hours: 5:45am9:00am, walk-ins Monday, Monday, [facility]: [address] [place] [address] Intake hours: 5:45am12:30pm, Monday and Thursday [facility]: [address] [place] [address] Intake hours: 8:00am2:00pm, Monday through Monday HOMELESS RESOURCES: Year-round shelters: [facility] [place] [address] [place] [place] [address] ; [facility] [place] [address] [place] [address]; [facility] [id number] [facility] [address] SPA 4 | [facility] [place] Provider: [facility] Address: [address], [address] # of Beds: 48 Population Served: [facility] Provider: First to Serve Address: [address] [facility], [address] # of Beds: 73 Population Served: [facility] 6 | [facility] Provider: [facility] Last Address: [address] [facility], [address] # of Beds: 63 Population Served: [facility] 3 | [facility] Provider: [facility] [place] Address: [address] [place] [address], [address] # of Beds: 75 Population Served: [facility] SPA 8 | [facility] Provider: [facility] [place] Address: [address] [facility], [address] # of Beds: 80 Population Served: [facility] 1 | [facility] Provider: [facility] [place] Address: [address] [facility], [address] # of Beds: 85 Population Served: [facility] 2 | [facility] Provider: Marla [facility] Address: Confidential (please call for location) # of Beds: 52 Population Served: [facility] 4 | [facility] Provider: [facility] Address: [address] [facility], [address] # of Beds: 49 Population Served: [facility] Provider: [facility] Address: [address] [place] [address], [facility] # of Beds: 27 Population Served: [facility] Hygiene: [facility]: [address] [place] ; [facility] [address] [facility] ; [facility] [address] [facility] [place] . Food Resources: [place] [facility] at [facility]- [address] [place]; Meet Each Need with Dignity ([facility]) [address] [facility] [place]; [facility] [address] [facility]; [facility] [address] [facility] [place]. Mental Health resources provided: [facility] [address] [place], [place] [id number] ; [facility] [address] [facility] [address], [place], [place] [id number] ; [facility] [address] [facility] [place], [place] [phone] ; [facility] [address] [place], [place] [address] Healthcare Clinics: [facility] [address] [facility], [address] [place]. [place] ; [facility] [address] [facility] [address] [place] [address]; [facility] [address] [facility]. [place] [phone] Counseling--Outpatient [facility] [address] [facility], [facility] [place], [place] [id number] (Specializes in in-depth psychotherapy for emotional distress: anxiety, depression, interpersonal conflicts, life transitions, childhood abuse) PSYCHIATRIC OUTPATIENT SERVICES [facility] Partial Hospitalization and Intensive Outpatient Program (Managed Care and [place] Only) [address] [facility] [address] [facility] Partial Hospitalization and Outpatient Program [address] [place] [address] [facility] Partial Hospitalization and Outpatient Program [address] [place], [place] [id number] [facility] [place] [facility] [address] [place] [address] [facility] Partial Hospitalization and Outpatient Program [address] [place], [place] [phone] Substance use resources provided included: [facility] Substance Abuse Self-Helpline (SAS) ; [facility] [address] [facility] [place] [address] ; [facility] [address] [facility] [address] ; [facility] [address] [facility] [phone] ; [facility] [address] [facility] [address] ; [facility] [address] [facility] [phone] ; [facility] [place]; [facility] [place]; [place]; Alcoholics Anonymous -[facility]
[2021-03-19] MEDS: SOD FERRIC GLUC 125 MG in IV NS 0.9% 100 ML IV SCH (14:49)
[2021-03-19 16:00] VITALS: BP 123/68
--- NOTE | 2021-03-19 18:23 | NUR ---
CHILD CARE TEACHER CLOSING NOTES PATIENT IN BED, AWAKE, A&O X 4, NOT IN ANY FORM OF ACUTE DISTRESS. WITH O2 VIA NC AT 2LPM SATURATING WELL, NO SOB NOTED. FC TO URINE BAG DRAINING YELLOW COLORED URINE. NOTED WITH WOUND VACC ON RLE, DRAINING SEROSANGUINEOUS DRAINAGE, KEPT RLE ELEVATED ORDERED. IV ACCESS ON JESS PICC LINE, PATENT AND FLUSHES WELL, IV ACCESS ON LAC G#18, PATENT AND FLUSHES WELL. PATIENT HAD DIALYSIS TODAY WITH 500 ML OF FLUID OUT. WOUND CARE DONE ORDERED. SAFETY PRECAUTIONS IN PLACE: BED ON LOWEST LOCKED POSITION, SIDE RAILS UP X 2, KEPT CALL LIGHT WITHIN EASY REACH. ALL NEEDS ATTENDED AND MET, DUE MEDS GIVEN ORDERED. WILL ENDORSE TO ONCOMING SHIFT FOR JAMEY.
[2021-03-19 20:00] VITALS: BP 104/59
--- NOTE | 2021-03-19 20:00 | NUR ---
RADIOLOGY SUPERVISOR OPENING NOTES: RECEIVED PATIENT SLEEP IN BED COMFORTABLY, AROUSABLE TO VERBAL STIMULI, BED IN LOW POSITION, CALL LIGHTS WITHIN REACH, NO COMPLAIN OF PAIN AND DISCOMFORT AT THIS TIME WITH WOUND VAC ON RE AT 125MMHG, PATIENT IS /O X4 ABLE TO MAKE NEEDS KNOWN. ON TELE MONITORING SR-79 ON RA NO SOB WAS OBSERVED,IV LINE AT LAC#20SL AND JESS PICC LINE -SL, PATIENT KEPT CLEAN AND DRY, ALL NEEDS MET, WILL CONTINUE TO MONITOR.
[2021-03-19] MEDS: MORPHINE SULFATE INJ 4 MG/ML DISP.SYRIN IV PRN (20:43)
[2021-03-19] MEDS: LORAZEPAM 1 MG TABLET PO PRN (20:44)
[2021-03-20] VITALS (11 sets, daily range): BP systolic 102–132; BP diastolic 44–92
[2021-03-20] MEDS: PIPERACILLIN /TAZOBACTAM 2.25 G in IV D5W 50 ML IV SCH ×3 (04:48→20:10)
[2021-03-20 06:51] LABS: BASOPHILS % (AUTO) 0.1 % (0.0-2.0); EOSINOPHILS % (AUTO) 1.8 % (0.0-6.0); HEMATOCRIT 21 % (39-51); LYMPHOCYTES # (AUTO) 1.7 K/uL (0.8-4.8); LYMPHOCYTES % (AUTO) 11.8 % (20.0-44.0); MEAN CORPUSCULAR HGB CONC 33 g/dl (31.0-36.0); MEAN CORPUSCULAR VOLUME 81 fL (80-96); MONOCYTES # (AUTO) 1.7 K/uL (0.1-1.30); MONOCYTES % (AUTO) 11.8 % (2.0-12.0); NEUTROPHILS # (AUTO) 10.8 K/uL (1.8-8.9); NEUTROPHILS % (AUTO) 74.5 % (43.0-81.0); PLATELET COUNT (AUTO) 195 K/uL (150-450); RED BLOOD CELL COUNT(AUTO) 2.64 MIL/uL (4.5-6.0); WHITE BLOOD COUNT (AUTO) 14.5 K/uL (4.3-11.0)
[2021-03-20 07:03] LABS: CALCIUM, SERUM 7.1 mg/dL (8.5-10.1); POTASSIUM 3.7 mmol/L (3.5-5.1)
--- NOTE | 2021-03-20 07:30 | NUR ---
BALE COVERER OPENING NOTES RECEIVED PATIENT ON BED, ASLEEP, AROUSABLE TO VERBAL STIMULI AND A/O X4. ON 02 AT 2LPM VIA NASAL CANNULA, BREATHING EVENLY AND UNLABORED. NOT IN DISTRESS. WITH NO COMPLAINTS OF PAIN AT THIS TIME. WITH IV ACCESS AT RIGHT UA PICC LINE, SALINE LOCKED, PATENT AND INTACT. WITH WOUND VACC, ON FC INFUSING WELL. SAFETY MEASURES IN PLACED. CALL LIGHT WITHIN REACH. BED ON LOWEST AND LOCKED POSITION WITH SIDE RAILS UP X2. WILL CONTINUE TO MONITOR.
--- NOTE | 2021-03-20 07:30 | NUR ---
SET STAFF FITTER NOTES ON TELE MONITOR CURRENTLY READING NORMAL SINUS RHYTHM AT 91BPM.
--- NOTE | 2021-03-20 07:44 | NUR ---
RN CLOSING NOTES: PATIENT SLEEP IN BED COMFORTABLY, AROUSABLE TO VERBAL STIMULI. BED IN LOW POSITION, CALL LIGHTS WITHIN REACH, NO COMPLAIN OF PAIN AND DISCOMFORT AT THIS TIME, WITH WOUND VACC, REPLCE CANISTER, ON FC INFUSING WELL, DRESSING CHANGE,PATIENT IS MED COMPLIANT, KPET CLEAN AND DERY, ALL NEEDS MET, WILL CONTINUE TO MONITOR.
[2021-03-20] MEDS: PANTOPRAZOLE 40 MG TABLET.DR PO SCH (08:15)
[2021-03-20] MEDS: HEPARIN SODIUM, PORCINE 5000 UNITS/1 ML VIAL SQ SCH ×2 (09:00→21:20)
[2021-03-20] MEDS ORDERED: NEPRO VAN 237 ML CAN PO PRN (11:30)
[2021-03-20] MEDS: HYDROMORPHONE INJ 2 MG/ML DISP.SYRIN IV PRN ×3 (12:02→20:11)
[2021-03-20 12:29] LABS: LYMPHOCYTES % (MANUAL) 16 % (16-48); NEUTROPHILS % (MANUAL) 72 (42-76); REACTIVE LYMPHOCYTES 12 % (0-0)
--- NOTE | 2021-03-20 13:40 | NUR ---
MS RN NOTE PATIENT IS FOR BLOOD TRANSFUSION PER DR. BRINK'S ORDER. CHECKED BLOOD PRODUCT DETAILS WITH MORE ORELLANA RN. CHECKED PATIENT'S VITAL SIGNS, STABLE. STARTED BLOOD TRANSFUSION. TO MONITOR PATIENT AND CHECK PATIENT'S CONDITION AND VITAL SIGNS AFTER 15MIN.
--- NOTE | 2021-03-20 13:40 | NUR ---
MS RN NOTE STARTED BLOOD TRANSFUSION AT 60ML/HR.
--- NOTE | 2021-03-20 13:55 | NUR ---
MS RN NOTE CHECKED PATIENT'S VITAL SIGNS WITH ONGOING BLOOD TRANSFUSION: BP-102/57, AZ-94BPM, RR-20CPM, TEMP-98.6F AND O2 SAT-100%.
[2021-03-20 14:12] LABS: IRON, SERUM 28 ug/dl (50-175); TOTAL IRON BINDING CAPACITY 146 ug/dl (250-450)
[2021-03-20] MEDS: IV LR 1000 ML 1,000 ML IV PRN (17:47)
[2021-03-20] MEDS: SOD FERRIC GLUC 125 MG in IV NS 0.9% 100 ML IV SCH (18:20)
--- NOTE | 2021-03-20 18:48 | NUR ---
MS RN CLOSING NOTES PATIENT ON BED, AWAKE AND A/O X4. ON 02 AT 2LPM VIA NASAL CANNULA, BREATHING EVENLY AND UNLABORED. NOT IN DISTRESS. WITH NO COMPLAINTS OF PAIN AT THIS TIME. WITH IV ACCESS AT RIGHT UA PICC LINE, SALINE LOCKED, PATENT AND INTACT. WITH WOUND VACC, ON FC INFUSING WELL. SAFETY MEASURES IN PLACED. CALL LIGHT WITHIN REACH. BED ON LOWEST AND LOCKED POSITION WITH SIDE RAILS UP X2. WILL ENDORSE TO NEXT SHIFT FOR JAMEY.
--- NOTE | 2021-03-20 20:25 | NUR ---
MS RN NOTES: RECEIVED PATIENT AWAKE IN BED, BED IN LOW POSITION, CALL LIGHTS WITHIN REACH, NO COMPLAIN OF PAIN AND DISCOMFORT AT THIS TIME, ON IV LINE WITH PLR @125ML INFUSING WELL AT RT UPPER ARM PIC LINE, WITH IJ CATH FOR HD CLEAN AND DRY, PATIENT ON WOUND VACC, FREE DRAINING ON RIGHT LEG CLEAN AND NO BLEEDING NOTED, ON O2 SAT AT 2LPM NO SOB WAS OBSERVED, WILL CONTINUE TO MONITOR.
[2021-03-21] MEDS: HYDROMORPHONE INJ 2 MG/ML DISP.SYRIN IV PRN ×7 (00:18→20:35)
[2021-03-21] MEDS: PIPERACILLIN /TAZOBACTAM 2.25 G in IV D5W 50 ML IV SCH ×3 (04:11→20:45)
--- NOTE | 2021-03-21 06:44 | NUR ---
RN CLOSING NOTES: PATIENT AWAKE IN BED , BED IN LOW POSITION, CALL LIGHTS WITHIN REACH, NO COMPLAIN OF PAIN AND DISCOMFORT AT THIS TIME, IV LINE AT JESS PICC LINE WITH PLR@125ML INFUSING WELL, ON BETTS CATH WITH 600 URINE OUTPUT, YELLOW COLORED, WITH WOUND VACC ON RIGHT LEG WITH 450 DICHARGE, PATIENT KEPT CLEAN AND DRY, ALL NEEDS MET WILL CONTINUE TO MONITOR.
--- NOTE | 2021-03-21 07:44 | NUR ---
MS RN OPENING NOTE RECEIVED PATIENT IN BED, ASLEEP, EASY TO AROUSE. ALERT AND ORIENTED X 4. NO S/S OF DISTRESS NOTED. BREATHING IS EVEN AND UNLABORED. IV ACCESS JESS PICCLINE LR @125 MLS/HR. PATIENT WITH WOUND VAC AND FC, PATENT AND DRAINING WELL. SAFETY MEASURES IN PLACE WITH BED LOCKED AND LOW POSITION, SIDE RAILS UP X 2. CALL LIGHT WITHIN REACH. WILL CONTINUE TO MONITOR THROUGHOUT SHIFT.
[2021-03-21 08:00] VITALS: BP 110/58
[2021-03-21] MEDS: PANTOPRAZOLE 40 MG TABLET.DR PO SCH (08:25)
[2021-03-21] MEDS: HEPARIN SODIUM, PORCINE 5000 UNITS/1 ML VIAL SQ SCH (08:32)
[2021-03-21] MEDS: IV LR 1000 ML 1,000 ML IV PRN (11:49)
[2021-03-21] MEDS ORDERED: IV NS 0.9% 1,000 ML IV ONE (13:00)
[2021-03-21] MEDS: SOD FERRIC GLUC 125 MG in IV NS 0.9% 100 ML IV SCH (14:31)
[2021-03-21 16:00] VITALS: BP 112/62
--- NOTE | 2021-03-21 18:57 | NUR ---
MS RN CLOSING NOTE PATIENT IN BED, RESTING COMFORTABLY. ALERT AND ORIENTED X 4. NO S/S OF DISTRESS NOTED. BREATHING IS EVEN AND UNLABORED. IV ACCESS JESS PICCLINE RUNNING NS 0/9% @75 MLS/HR. PATIENT WITH WOUND VAC AND FC, PATENT AND DRAINING WELL. 350ML OUTPUT FROM WOUND VAC. ALL NEEDS MET THROUGHOUT SHIFT. WOUND TREATMENT DONE. SAFETY MEASURES MAINTAINED. WILL ENDORSE TO ONCOMING SHIFT.
--- NOTE | 2021-03-21 19:27 | NUR ---
MS RN OPENING NOTES: RECEIVED PATIENT AWAKE IN BED, BED IN LOW POSITION, CALL LIGHTS WITHIN REACH, NO COMPLAIN OF PAIN AND DISCOMFORT AT THIS TIME, PATIENT IS A/O X4 ABLE TO MAKE NEEDS KNOWN IV LINE AT [facility] PICC LINE WITH NS 0.9@75ML PER HOUR INFUSING WELL, ON BETTS CATH WITH 50 CC URINE OUTPUT, WITH WOUND VACC AT 900CC LEVEL, PATIENT KEPT CLEAN AND DRY, WILL CONTINUE TO MONITOR.
[2021-03-21] MEDS: LORAZEPAM 1 MG TABLET PO PRN (19:57)
[2021-03-21 20:12] VITALS: BP 117/72
[2021-03-22] MEDS: HYDROMORPHONE INJ 2 MG/ML DISP.SYRIN IV PRN ×6 (00:36→21:51)
[2021-03-22] MEDS: LORAZEPAM 1 MG TABLET PO PRN ×2 (03:42→17:24)
[2021-03-22] MEDS: PIPERACILLIN /TAZOBACTAM 2.25 G in IV D5W 50 ML IV SCH (04:16)
--- NOTE | 2021-03-22 06:25 | NUR ---
RN NOTES: REPLACE WOUND VACC WITH 1000CC URINE OUTPUT, @0610, KEPT VACUUM HOST PATENT AND LEAK FREE.
--- NOTE | 2021-03-22 07:00 | NUR ---
RN NOTES: RECEIVED A CALL FROM LAB PT WAS GRAM POSITIVE WITH BLOOD CULTURE IN CLUSTER ON 1 BOTTLE, DR GRIGGS MADE AWARE, CURRENTLY PATIENT HAS ON GOING ZOSYN 2.25 Q8H, PER DOCTOR NO NEW ORDER.
--- NOTE | 2021-03-22 07:27 | NUR ---
WOUND CARE FOLLOW UP: RT LOWER EXTREMITY WOUND VAC FUNCTIONING WELL AT 125mmHg CONTINUOUS SETTING. PER NURSING STAFF, VAC CANISTER WAS JUST CHANGED WITH NEARLY 1000cc RED DRAINAGE.
--- NOTE | 2021-03-22 07:30 | NUR ---
MS RN OPENING NOTE RECEIVED PATIENT IN BED, ASLEEP, EASY TO AROUSE. ALERT AND ORIENTED X 4. NO S/S OF DISTRESS NOTED. BREATHING IS EVEN AND UNLABORED. IV ACCESS JESS PICCLINE PATENT AND INTACT WITH NS 0.9% RUNNING @75MLS/HR. PATIENT WITH WOUND VAC AND FC, PATENT AND DRAINING WELL. SAFETY MEASURES IN PLACE WITH BED LOCKED AND LOW POSITION, SIDE RAILS UP X 2. CALL LIGHT WITHIN REACH. WILL CONTINUE TO MONITOR THROUGHOUT SHIFT.
--- NOTE | 2021-03-22 07:48 | NUR ---
MS RN CLOSING NOTES: PATIENT AWAKE IN BED, BED IN LOW POSITION, CALL LIGHTS WITHIN REACH, NO COMPLAIN OF PAIN AND DISCOMFORT AT THIS TIME, PATIENT HAS PAULINA PICC LINE, WITH ONGOING IV FLUID TO CONSUME, ON BETTS CATHETER, WITH 1400 CC URINE OUTPUT, WOUND VACC 1000CC, 200CC OUTPUT ON SHIFT, PATIENT KEPT CLEAN AND DRY, DRESSING CHANGE ON LEFT LEG, PLACED IN BED COMFORTABLY , ENDORSE TO INCOMING SHIFT
[2021-03-22 08:07] VITALS: BP 118/67
[2021-03-22 08:13] LABS: BASOPHILS % (AUTO) 0.2 % (0.0-2.0); EOSINOPHILS % (AUTO) 2.8 % (0.0-6.0); HEMATOCRIT 22 % (39-51); HEMOGLOBIN 7.3 g/dL (13.5-17.5); MEAN CORPUSCULAR HGB CONC 33 g/dl (31.0-36.0); MEAN CORPUSCULAR VOLUME 84 fL (80-96); MONOCYTES # (AUTO) 1.1 K/uL (0.1-1.30); MONOCYTES % (AUTO) 6.5 % (2.0-12.0); NEUTROPHILS # (AUTO) 13.4 K/uL (1.8-8.9); NEUTROPHILS % (AUTO) 78.5 % (43.0-81.0); PLATELET COUNT (AUTO) 233 K/uL (150-450); RED BLOOD CELL COUNT(AUTO) 2.67 MIL/uL (4.5-6.0); WHITE BLOOD COUNT (AUTO) 17.1 K/uL (4.3-11.0)
[2021-03-22] MEDS: PANTOPRAZOLE 40 MG TABLET.DR PO SCH (08:57)
[2021-03-22 09:35] LABS: CREATININE 7.4 mg/dL (0.6-1.3); MAGNESIUM 1.9 mg/dL (1.8-2.4); POTASSIUM 3.5 mmol/L (3.5-5.1)
[2021-03-22] MEDS: METRONIDAZOLE 500 MG TABLET PO SCH ×2 (11:18→18:35)
[2021-03-22] MEDS: CEFEPIME 1 GM in IV D5W 50 ML IV SCH (12:58)
[2021-03-22 16:23] VITALS: BP 128/72
[2021-03-22] MEDS: IV NS 0.9% 1,000 ML IV PRN (18:35)
--- NOTE | 2021-03-22 18:53 | NUR ---
MS RN CLOSING NOTE PATIENT IN BED, RESTING COMFORTABLY. CURRENTLY HAVING HAVING DIALYSIS AT THIS TIME. ALERT AND ORIENTED X 4. NO S/S OF DISTRESS NOTED. BREATHING IS EVEN AND UNLABORED. PATIENT WITH WOUND VAC AND FC, PATENT AND DRAINING WELL. 100 ML OUTPUT FROM WOUND VAC. ALL NEEDS MET THROUGHOUT SHIFT. WOUND TREATMENT DONE. SAFETY MEASURES MAINTAINED. WILL ENDORSE TO ONCOMING SHIFT.
--- NOTE | 2021-03-22 19:00 | NUR ---
MS RN OPENING NOTE RECEIVED PT AWAKE IN BED. A/O X4. PT IS STABLE ON 2L OXYGEN VIA NC. NO SOB OR S/S OF RESPIRATORY DISTRESS NOTED. PT HAS NO C/O PAIN OR DISCOMFORT AT THIS TIME. PT NOTED WITH RIGHT INTER JUGULAR HD CATH IN PLACE, R U ARM PICC LINE INTACT, PATENT,AND FLUSHING WELL.DIALYSIS ONGOING AT THE MOMENT. BETTS CATHETER IN PLACE DRAINING CLEAR, YELLOW URINE. SAFETY PRECAUTIONS MAINTAINED. BED IN LOWEST LOCKED POSITION, HOB ELEVATED, SIDE RAILS UP X2. CALL LIGHT AND TABLE WITHIN REACH. WILL CONTINUE WITH PLAN OF CARE.
[2021-03-22 20:00] VITALS: BP 102/67
--- NOTE | 2021-03-22 21:51 | NUR ---
PT C/O GENERALIZED ACHING PAIN OF 9/10, PER PT REQUEST DILAUDID 2MG/1ML IV Q4H PRN ADMINISTERED AT THIS TIME ORDERED. WILL CONTINUE TO MONITOR.
[2021-03-23] VITALS (7 sets, daily range): BP systolic 94–110; BP diastolic 44–61
[2021-03-23] MEDS: HYDROMORPHONE INJ 2 MG/ML DISP.SYRIN IV PRN ×6 (01:38→23:33)
--- NOTE | 2021-03-23 01:38 | NUR ---
PT C/O GENERALIZED ACHING PAIN OF 9/10, PER PT REQUEST DILAUDID 2MG/1ML IV Q4H PRN ADMINISTERED AT THIS TIME ORDERED. WILL CONTINUE TO MONITOR.
[2021-03-23] MEDS: METRONIDAZOLE 500 MG TABLET PO SCH ×3 (03:55→19:40)
--- NOTE | 2021-03-23 05:49 | NUR ---
PT C/O GENERALIZED ACHING PAIN OF 9/10, PER PT REQUEST DILAUDID 2MG/1ML IV Q4H PRN ADMINISTERED AT THIS TIME ORDERED. WILL CONTINUE TO MONITOR.
--- NOTE | 2021-03-23 06:02 | NUR ---
MS RN CLOSING NOTE PT AWAKE IN BED, A/O X4. PT IS STABLE ON 2L OXYGEN VIA NC. NO SOB NOTED, NO S/S OF RESPIRATORY DISTRESS. PT IS BEDREST. IV ACCESS INTACT, PATENT AND FLUSHING WELL, BETTS CATHETER CARE PROVIDED AND DRAINING CLEAR, YELLOW URINE,ALL NEEDS, CARE, MEDICATIONS AND WOUND CARE ADMINISTERED PER ORDER. PT REPOSITIONED Q2H AND PRN, SAFETY, SEIZURE, AND ASPIRATION PRECAUTIONS MAINTAINED AT ALL TIMES. BED IN LOWEST LOCKED POSITION, HOB ELEVATED, SIDE RAILS UP X2. CALL LIGHT AND TABLE WITHIN REACH. WILL ENDORSE TO ONCOMING NURSE FOR JAMEY.
[2021-03-23] MEDS: PANTOPRAZOLE 40 MG TABLET.DR PO SCH (07:30)
--- NOTE | 2021-03-23 07:30 | NUR ---
RECEIVED PT. IN AM,ALERT AND ORIENTED X3-4,PALE,F/C TO GRAVITY DRAINAGE WITH GOOD OUTPUT.WD VAC TO SUCTION.IV INFUSING.
--- NOTE | 2021-03-23 09:27 | NUR ---
WOUND CARE: KCI WOUND VAC FUNCTIONING WELL AT 125mmHg TO RT LOWER EXTREMITY WOUNDS WITH APPROX. 500cc RED DRAINAGE IN CANISTER. PT TO HAVE SURGICAL FOLLOW UP TODAY.
--- NOTE | 2021-03-23 09:55 | NUR ---
ANESTHESIA NOTIFIED AND MEDICATED FOR PAIN WITH DILAUDID.
[2021-03-23] MEDS ORDERED: FENTANYL PF 100MCG/2ML AMPUL ONE ×2 (09:58→12:49)
--- NOTE | 2021-03-23 09:58 | NUR ---
LEFT VIA BED FOR OR.
[2021-03-23] MEDS ORDERED: VANCOMYCIN 1 GM in IV D5W 250ml IV ONE (11:00)
[2021-03-23] MEDS ORDERED: HYDROMORPHONE INJ 2 MG/ML DISP.SYRIN ONE (11:53)
--- NOTE | 2021-03-23 13:30 | NUR ---
RETURNED TO RM. FROM OR,VS STABLE.
--- NOTE | 2021-03-23 13:35 | NUR ---
WD VAC DRESSING DRY,WD VAC TO SUCTION,F/C DRAINING.VS STABLE.IV INFUSING.
[2021-03-23] MEDS ORDERED: ANESTHESIA TRAY IN PYXIS 1 EA TRAY MC ONE (14:49)
[2021-03-23] MEDS: CEFEPIME 1 GM in IV D5W 50 ML IV SCH (15:05)
--- NOTE | 2021-03-23 15:19 | NUR ---
MEDICATED FOR PAIN.
[2021-03-23] MEDS: LORAZEPAM 1 MG TABLET PO PRN (17:32)
--- NOTE | 2021-03-23 17:32 | NUR ---
GIVEN ATIVAN FOR NERVES.
--- NOTE | 2021-03-23 18:30 | NUR ---
VS STABLE.HOB ELEVATED.
--- NOTE | 2021-03-23 19:00 | NUR ---
received in bed alert and orientated requesting pain medication right leg foot swollen and KCI pump om the leg and working left foot with edema noted
[2021-03-23 22:30] LABS: MEAN CORPUSCULAR HGB CONC 33 g/dl (31.0-36.0); MEAN CORPUSCULAR VOLUME 84 fL (80-96); PLATELET COUNT (AUTO) 261 K/uL (150-450); WHITE BLOOD COUNT (AUTO) 12.5 K/uL (4.3-11.0)
[2021-03-23 22:35] LABS: HEMATOCRIT 18 % (39-51); HEMOGLOBIN 5.8 g/dL (13.5-17.5)
[2021-03-24] VITALS (9 sets, daily range): BP systolic 96–125; BP diastolic 51–69
[2021-03-24] MEDS ORDERED: ACETAMINOPHEN 325 MG TABLET PO PRN
[2021-03-24] MEDS: METRONIDAZOLE 500 MG TABLET PO SCH ×3 (02:07→18:24)
[2021-03-24] MEDS: HYDROMORPHONE INJ 2 MG/ML DISP.SYRIN IV PRN ×4 (04:06→18:23)
[2021-03-24] MEDS: IV NS 0.9% 1,000 ML IV PRN (04:18)
--- NOTE | 2021-03-24 04:43 | NUR ---
cloosing Notes: Cody JEFFERSON surgeon requested a STAT H/H H/H at 1999 was 5.8 he was made aware..instructed to speak to Phyllis ENCINAS NP and see if okay to transfuse 2 units of blood Phyllis Encinas NP said to give 2 units PRBC transfused and finished at 0:430 w/o reaction tolerated well. KCI pump right leg working Medicated X3 with Dilaudid for right leg pain and effective
[2021-03-24 06:48] LABS: BASOPHILS # (AUTO) 0.1 K/uL (0.0-0.2); BASOPHILS % (AUTO) 0.4 % (0.0-2.0); HEMATOCRIT 24 % (39-51); LYMPHOCYTES # (AUTO) 1.7 K/uL (0.8-4.8); LYMPHOCYTES % (AUTO) 10.7 % (20.0-44.0); MEAN CORPUSCULAR HGB CONC 33 g/dl (31.0-36.0); MEAN CORPUSCULAR VOLUME 87 fL (80-96); MONOCYTES # (AUTO) 1.5 K/uL (0.1-1.30); MONOCYTES % (AUTO) 9.3 % (2.0-12.0); NEUTROPHILS # (AUTO) 12.4 K/uL (1.8-8.9); NEUTROPHILS % (AUTO) 77.6 % (43.0-81.0); PLATELET COUNT (AUTO) 295 K/uL (150-450); RED BLOOD CELL COUNT(AUTO) 2.79 MIL/uL (4.5-6.0); WHITE BLOOD COUNT (AUTO) 15.9 K/uL (4.3-11.0)
[2021-03-24 08:08] LABS: CALCIUM, SERUM 7.2 mg/dL (8.5-10.1); CREATININE 4.5 mg/dL (0.6-1.3); POTASSIUM 3.4 mmol/L (3.5-5.1)
[2021-03-24] MEDS: PANTOPRAZOLE 40 MG TABLET.DR PO SCH (08:17)
--- NOTE | 2021-03-24 09:44 | NUR ---
WOUND CARE: KCI VAC FUNCTIONING WELL TO RT LOWER EXTREMITY AT 125mmHg CONTINUOUS SETTING WITH APPROX. 500cc RED DRAINAGE IN CANISTER.
--- NOTE | 2021-03-24 10:40 | NUR ---
WOUND CARE: WOUND VAC CANISTER CHANGED WITH 625cc RED DRAINAGE.
[2021-03-24] MEDS: CEFEPIME 1 GM in IV D5W 50 ML IV SCH (11:51)
[2021-03-24] MEDS: ONDANSETRON HCL/PF 4 MG/2 ML VIAL IVP PRN (15:50)
--- NOTE | 2021-03-24 18:50 | NUR ---
MS RN CLOSING NOTE PATIENT CURRENTLY LYING IN BED, AWAKE, WATCHING TV. A/O X4. STABLE ON ROOM AIR - NO SOB NOTED. NO DISTRESS/DISCOMFORT NOTED. S/P WOUND DEBRIDEMENT OF THE RIGHT LEG 03/23 -ATTACHED TO WOUND VAC. PER PRIMA, IF MACHINE STATES THERE IS A LEAK, TAKE ENTIRE DRESSING OFF AND PACK WITH SALINE SOAKED GAUZE, WRAP WITH KERLIX. PATIENT WILL BE GOING BACK TO OR FOR ANOTHER DEBRIDMENT SO SHE WILL PUT A NEW DRESSING ON. IV ACCESS TO RIGHT UPPER ARM - PICC LINE - RUNNING NS @ 75ML/HR. BETTS CATHETER NOTED, DRAINING CLEAR, YELLOW URINE TO GRAVITY. SAFETY MEASURES IN PLACE. CALL LIGHT WITHIN REACH. WILL ENDORSE TO DINING ROOM SERVER NURSE FOR JAMEY.
--- NOTE | 2021-03-24 19:00 | NUR ---
Received patient in bed alert and orientated X4 watching TV Right leg elevated X1 pillow swollen legb and feet wound vac off when turned on indicates there is a air leak unable to locate the air leak off going RN stated to remove the dressing and redress, given instructions. Spoke to the charge nurse and there is no order to remove the wound vac. will have the day shift f/u in the AM
[2021-03-24] MEDS: LORAZEPAM 1 MG TABLET PO PRN (22:06)
[2021-03-25] MEDS: HYDROMORPHONE INJ 2 MG/ML DISP.SYRIN IV PRN ×5 (01:40→20:25)
[2021-03-25] MEDS: METRONIDAZOLE 500 MG TABLET PO SCH ×3 (02:15→18:13)
[2021-03-25] MEDS: IV NS 0.9% 250 ML IV PRN (03:54)
--- NOTE | 2021-03-25 05:06 | NUR ---
closing notes: awake thru the night playing with his electronics and watching his movies medicated 1 X when he requisted Ayivan and 1X he asked for the Dilaudid unable to get the wound vac to function shows there is a leak read in the notes of wound care that they will change the wound vac today. foot warm and movement present swollen kept elevated on a pillow Mr. Mascorro is NOT cooperative about staying of his buttock and turning explained to him what could happen and most likely will if he continious to refuse to stay on his back and the pressure to his buttock and the skin he has a flat affect.
[2021-03-25 05:56] LABS: BASOPHILS # (AUTO) 0.1 K/uL (0.0-0.2); BASOPHILS % (AUTO) 0.4 % (0.0-2.0); EOSINOPHILS % (AUTO) 1.4 % (0.0-6.0); HEMATOCRIT 24 % (39-51); LYMPHOCYTES # (AUTO) 1.5 K/uL (0.8-4.8); LYMPHOCYTES % (AUTO) 12.1 % (20.0-44.0); MEAN CORPUSCULAR HGB CONC 34 g/dl (31.0-36.0); MEAN CORPUSCULAR VOLUME 86 fL (80-96); MONOCYTES # (AUTO) 1.2 K/uL (0.1-1.30); MONOCYTES % (AUTO) 9.5 % (2.0-12.0); NEUTROPHILS # (AUTO) 9.7 K/uL (1.8-8.9); NEUTROPHILS % (AUTO) 76.6 % (43.0-81.0); PLATELET COUNT (AUTO) 327 K/uL (150-450); RED BLOOD CELL COUNT(AUTO) 2.78 MIL/uL (4.5-6.0); WHITE BLOOD COUNT (AUTO) 12.7 K/uL (4.3-11.0)
[2021-03-25 06:11] LABS: ALBUMIN 1.7 g/dL (3.4-5.0); BILIRUBIN,TOTAL 0.3 mg/dL (0.2-1.0); CALCIUM, SERUM 7.2 mg/dL (8.5-10.1); CREATININE 3.5 mg/dL (0.6-1.3); POTASSIUM 3.3 mmol/L (3.5-5.1); TOTAL PROTEIN, SERUM 5.8 g/dL (6.4-8.2)
--- NOTE | 2021-03-25 07:30 | NUR ---
MS RN OPENING NOTES RECEIVED PT AWAKE IN BED, A/O X4. PT IS STABLE ON ROOM AIR. NO SOB NOTED, NO S/S OF RESPIRATORY DISTRESS. PT IS BEDREST. IV ACCESS INTACT, PATENT AND FLUSHING WELL, BETTS CATHETER CARE PROVIDED AND DRAINING CLEAR, YELLOW URINE. PT REPOSITIONED Q2H AND PRN. WOUND VACC WAS NOTED TO BE NOT WORKING AT THIS TIME, DR. ESPINOZA MADE AWARE. INTACT DRESSING ON LE NOTED. SAFETY PRECAUTIONS IN PLACE: BED IN LOWEST LOCKED POSITION, HOB ELEVATED, SIDE RAILS UP X2. CALL LIGHT AND TABLE WITHIN REACH. WILL CONTINUE TO MONITOR ACCORDINGLY.
[2021-03-25] MEDS: PANTOPRAZOLE 40 MG TABLET.DR PO SCH (07:48)
[2021-03-25 08:00] VITALS: BP 121/69
[2021-03-25] MEDS: POTASSIUM CL. PREMIX PERIPHER. 50 ML IV SCH ×4 (09:32→13:12)
--- NOTE | 2021-03-25 10:15 | NUR ---
RN NOTES WOUND CARE DONE WITH DR. ESPINOZA. RIGHT LOWER LEG; WOUND VACC WAS REMOVED BY DOCTOR ESPINOZA. FOAM DRESSING REMOVED, IRRIGATED WITH NS, PLACED XEROFORM, PACKED WITH WET GAUZED, COVERED WITH ABD, COVERED WITH KERLIX AND SECURED WITH TAPE.
[2021-03-25] MEDS: LORAZEPAM 1 MG TABLET PO PRN (12:05)
[2021-03-25] MEDS: CEFEPIME 1 GM in IV D5W 50 ML IV SCH (12:32)
[2021-03-25] MEDS: NEPRO VAN 237 ML CAN PO SCH ×2 (14:00→17:12)
[2021-03-25 16:00] VITALS: BP 117/75
--- NOTE | 2021-03-25 18:45 | NUR ---
MS RN CLOSING NOTES PT AWAKE IN BED, A/O X4. PT IS STABLE ON ROOM AIR. NO SOB NOTED, NO S/S OF RESPIRATORY DISTRESS. PT IS BEDREST. IV ACCESS INTACT, PATENT AND FLUSHING WELL, BETTS CATHETER CARE PROVIDED AND DRAINING CLEAR, YELLOW URINE. PT REPOSITIONED Q2H AND PRN. WITH DRY AND INTACT DRESSING ON BLE. NO COMPLAINTS OF PAIN AT THIS TIME. SAFETY PRECAUTIONS IN PLACE: BED IN LOWEST LOCKED POSITION, HOB ELEVATED, SIDE RAILS UP X2. CALL LIGHT AND TABLE WITHIN REACH. ALL NEEDS ATTENDED AND ME. DUE MEDS GIVEN ORDERED. WILL ENDORSE TO ONCOMING SHIFT FOR JAMEY.
--- NOTE | 2021-03-25 20:03 | NUR ---
MS RN OPENING NOTES: RECEIVED PATIENT SLEEP IN BED COMFORTABLY, BED IN LOW POSITION, CALL LIGHTS WITHIN REACH, NO COMPLAIN OF PAIN AND DISCOMFORT AT THIS TIME, PATIENT IS A/O X4 ABLE TO EXPRESS NEEDS, ON BR, IV LINE AT JESS PICC LINE WITH NS 1L @75ML/HR , NPO POST MN FOR SCHEDULE DEBRIDEMENT TOMM, PATIENT KEPT CLEAN AND DRY, ALL NEEDS MET, WILL CONTINUE TO MONITOR.
[2021-03-25 20:34] VITALS: BP 116/65
[2021-03-25] MEDS: TEMAZEPAM 15 MG CAPSULE PO PRN (21:50)
[2021-03-26] MEDS: HYDROMORPHONE INJ 2 MG/ML DISP.SYRIN IV PRN ×5 (00:41→20:32)
[2021-03-26] MEDS: LORAZEPAM 1 MG TABLET PO PRN ×2 (02:49→17:34)
[2021-03-26] MEDS: METRONIDAZOLE 500 MG TABLET PO SCH ×3 (03:52→19:19)
[2021-03-26 05:28] LABS: BASOPHILS # (AUTO) 0.1 K/uL (0.0-0.2); BASOPHILS % (AUTO) 0.7 % (0.0-2.0); EOSINOPHILS % (AUTO) 3.1 % (0.0-6.0); HEMATOCRIT 23 % (39-51); HEMOGLOBIN 7.7 g/dL (13.5-17.5); LYMPHOCYTES # (AUTO) 1.8 K/uL (0.8-4.8); LYMPHOCYTES % (AUTO) 15.2 % (20.0-44.0); MEAN CORPUSCULAR HGB CONC 33 g/dl (31.0-36.0); MEAN CORPUSCULAR VOLUME 87 fL (80-96); MONOCYTES # (AUTO) 1.2 K/uL (0.1-1.30); MONOCYTES % (AUTO) 9.9 % (2.0-12.0); NEUTROPHILS # (AUTO) 8.5 K/uL (1.8-8.9); NEUTROPHILS % (AUTO) 71.1 % (43.0-81.0); PLATELET COUNT (AUTO) 322 K/uL (150-450); RED BLOOD CELL COUNT(AUTO) 2.69 MIL/uL (4.5-6.0); WHITE BLOOD COUNT (AUTO) 11.9 K/uL (4.3-11.0)
--- NOTE | 2021-03-26 07:05 | NUR ---
MS/RN NOTES- DEBRIDEMENT PATIENT WAS PICKED UP BY OR STAFF FOR THE DEBRIDEMENT PROCEDURE.
[2021-03-26] MEDS ORDERED: POLYMYXIN B SULFATE 500,000 UNITS ONE (07:16)
[2021-03-26] MEDS ORDERED: LIDOCAINE 0.5%-EPI 1:200,000 50 ML VIAL ONE (07:17)
[2021-03-26] MEDS ORDERED: LIDOCAINE 1% INJ 50 ML MDV IJ ONE (07:17)
[2021-03-26] MEDS ORDERED: ANESTHESIA TRAY IN PYXIS 1 EA TRAY MC ONE (07:17)
[2021-03-26] MEDS ORDERED: BUPIVACAINE MPF 0.5% W/EPI INJ 30 ML VIAL ONE (07:23)
[2021-03-26] MEDS ORDERED: HYDROMORPHONE INJ 2 MG/ML DISP.SYRIN ONE (07:23)
[2021-03-26] MEDS ORDERED: MIDAZOLAM HCL 2 MG/2ML VIAL ONE (07:24)
[2021-03-26 07:26] LABS: CREATININE 2.4 mg/dL (0.6-1.3); POTASSIUM 3.2 mmol/L (3.5-5.1)
[2021-03-26] MEDS: PANTOPRAZOLE 40 MG TABLET.DR PO SCH (07:30)
--- NOTE | 2021-03-26 07:30 | NUR ---
RN CLOSING NOTES: PATIENT WAS AWAKE IN BED, BED IN LOW POSITION, CALL LIGHTS WITHIN REACH, NO COMPLAIN OF PAIN AND DISCOMFORT , PATIENT ON ROUTINE PAIN MEDICINE, NPO POST MIDNIGHT DUE TO DEBRIDEMENT PROCEDURE IN AM PRE OP CHECKLIST DONE, PATIENT HAS JESS PICC LINE WITH NSS@75ML/HR INFUSING WELL, DRESSING CHANGE AT BILATERAL LEG CLEAN AND DRY, PATIENT KEPT CLEAN AN DRY, ALL NEEDS MET, PICK BY OR AT 0710 ON STABLE CONDITION, ENDORSE TO INCOMING SHIFT.
[2021-03-26] MEDS: NEPRO VAN 237 ML CAN PO SCH ×2 (08:00→17:33)
[2021-03-26] MEDS ORDERED: POTASSIUM CHLORIDE 20 MEQ TAB.PRT.SR PO ONE (10:00)
[2021-03-26 10:47] LABS: HEMOGLOBIN 8.1 g/dL (13.5-17.5)
--- NOTE | 2021-03-26 11:11 | NUR ---
MS/RN NOTES- PATIENT CAME BACK FROM SURGERY S/P BILATERAL LOWER EXTREMITY EXCISIONAL WOUND DEBRIDEMENT WITH DR. ESPINOZA. PATIENT IS ALERT AND ORIENTED X3, ABLE TO MAKE NEEDS KNOWN. STABLE ON ROOM AIR AT 100% O2 SAT. V/S TAKEN FOLLOWS: BP-113/67, HR-102, RR-18, T-98.5. WOUND VAC ATTACHED TO RIGHT LOWER EXTREMITY ON 125 MMHG TO KEEP RUNNING CONTINUOUSLY PER DR. ESPINOZA. WILL CONTINUE TO MONITOR PATIENT.
[2021-03-26] MEDS: CEFEPIME 1 GM in IV D5W 50 ML IV SCH (11:29)
[2021-03-26] MEDS ORDERED: VANCOMYCIN POST DIALYSIS 500MG IV PRN (14:00)
[2021-03-26] MEDS ORDERED: POTASSIUM CHLORIDE 10 MEQ TABLET.SA PO ONE (17:00)
--- NOTE | 2021-03-26 19:21 | NUR ---
MS/RN CLOSING NOTES- PATIENT IN BED. PATIENT IS ALERT AND ORIENTED X3, ABLE TO MAKE NEEDS KNOWN. STABLE ON ROOM AIR AT 100% O2 SAT. WOUND VAC ATTACHED TO RIGHT LOWER EXTREMITY ON 125 MMHG TO KEEP RUNNING CONTINUOUSLY PER DR. ESPINOZA. SAFETY PRECAUTIONS MAINTAINED. WILL ENDORSE TO THE NEXT SHIFT FOR JAMEY.
[2021-03-26 20:00] VITALS: BP 108/70
--- NOTE | 2021-03-26 20:00 | NUR ---
MS RN OPENING NOTES: RECEIVED PATIENT AWAKE IN BED, BED IN LOW POSITION, CALL LIGHTS WITHIN REACH, NO COMPLAIN OF PAIN A DISCOMFORT AT THIS TIME, WITH IV LINE AT JESS WITH ONGOING NS AT 75ML/PER HOUR INFUSING WELL, ON FC WITH INITIAL OF 300CC URINE OUTPUT, PATIENT HAS WOUND VACC ON LEFT LEG, S/P DBRIDEMENT,PATIENT KEPT CLEAN AND DRY ALL NEEDS MET, WILL CONTINUE TO MONITOR.
[2021-03-27] MEDS: HYDROMORPHONE INJ 2 MG/ML DISP.SYRIN IV PRN ×5 (00:53→20:13)
[2021-03-27] MEDS: METRONIDAZOLE 500 MG TABLET PO SCH ×3 (03:26→18:47)
[2021-03-27 04:12] VITALS: BP 108/70
[2021-03-27] MEDS: IV NS 0.9% 1,000 ML IV PRN (06:53)
[2021-03-27 07:17] LABS: CREATININE 1.8 mg/dL (0.6-1.3); POTASSIUM 3.6 mmol/L (3.5-5.1)
--- NOTE | 2021-03-27 07:34 | NUR ---
MS RN CLOSING NOTES: PATIENT AWAKE IN BED, BED IN LOW POSITION, CALL LIGHTS WITHIN REACH, NO COMPLAIN OF PAIN AND DISCOMFORT AT THIS TIME, ON WOUND VACC AT RT LEG WITH 500 OUTPUT WITH FC - 1400 CC OUTPUT. PATIENT HAS JESS PICC LINE WITH ONGOING 0.9NSS@75 ML PER HOUR INFUSING WELL , PATIENT KEPT CLEAN AND DRY, ALL NEEDS MET, ENDORSE TO INCOMING SHIFT.
--- NOTE | 2021-03-27 07:50 | NUR ---
MS/RN OPENING NOTES: RECEIVED PATIENT IN BED, ALERT AND ORIENTED X3, ABLE TO MAKE NEEDS KNOWN. STABLE ON ROOM AIR. NO COMPLAINTS OF PAIN AND DISCOMFORT AT THIS TIME, ON WOUND VACC AT RT LEG. PATIENT HAS JESS PICC LINE WITH ONGOING 0.9NSS@75 ML PER HOUR INFUSING WELL. BETTS CATHETER IN PLACED DRAINING INTO A CLEAR YELLOW URINE. SAFETY PRECAUTIONS IN PLACED: BED LOCKED ON LOWEST POSITION, SIDE RAILS UPX2, CALL LIGHT WITHIN EASY REACH. WILL CONTINUE TO MONITOR PATIENT.
[2021-03-27] MEDS: NEPRO VAN 237 ML CAN PO SCH ×2 (08:27→16:44)
[2021-03-27] MEDS: PANTOPRAZOLE 40 MG TABLET.DR PO SCH (08:27)
[2021-03-27] MEDS: CEFEPIME 1 GM in IV D5W 50 ML IV SCH (12:24)
--- NOTE | 2021-03-27 18:56 | NUR ---
MS/RN CLOSING NOTES: PATIENT IN BED, ALERT AND ORIENTED X3, ABLE TO MAKE NEEDS KNOWN. STABLE ON ROOM AIR. NO COMPLAINTS OF PAIN AND DISCOMFORT AT THIS TIME, ON WOUND VACC AT RT LEG. PATIENT HAS JESS PICC LINE WITH ONGOING 0.9NSS@75 ML PER HOUR INFUSING WELL. BETTS CATHETER IN PLACED DRAINING INTO A CLEAR YELLOW URINE. ALL NEEDS MET. SAFETY PRECAUTIONS IN PLACED: BED LOCKED ON LOWEST POSITION, SIDE RAILS UPX2, CALL LIGHT WITHIN EASY REACH. WILL ENDORSE TO THE NEXT SHIFT FOR JAMEY.
--- NOTE | 2021-03-27 19:30 | NUR ---
MS RN OPENING NOTE RECEIVED PT AWAKE IN BED. A/O X3, ABLE TO MAKE NEEDS KNOWN. PT IS STABLE ON ROOM AIR. NO SOB OR S/S OF RESPIRATORY DISTRESS NOTED. NO C/O OF PAIN OR DISCOMFORT AT THIS TIME. PT NOTED WITH WOUND VAC AT RT LEG. IV ACCESS IN JESS PICC LINE INFUSING NS @ 75ML/HR, INTACT AND PATENT. BETTS CATH IN PLACE DRAINING CLEAR YELLOW URINE. SAFETY PRECAUTIONS MAINTAINED. BED IN LOWEST LOCKED POSITION, HOB ELEVATED, SIDE RAILS UP X2. CALL LIGHT AND TABLE WITHIN REACH. WILL CONTINUE WITH PLAN OF CARE.
[2021-03-27 20:00] VITALS: BP 112/69
--- NOTE | 2021-03-27 20:13 | NUR ---
RN NOTE - PAIN PT C/O ACHING PAIN IN RIGHT ANTERIOR LEG, RATED 9/10 ON PAIN SCALE. VSS. PER PT REQUEST, ADMINISTERED DILAUDID 2MG IV Q4H PRN FOR PAIN. WILL CONTINUE TO MONITOR PT.
[2021-03-28] MEDS: HYDROMORPHONE INJ 2 MG/ML DISP.SYRIN IV PRN ×6 (00:42→23:02)
[2021-03-28] MEDS: METRONIDAZOLE 500 MG TABLET PO SCH ×3 (03:23→18:22)
--- NOTE | 2021-03-28 05:05 | NUR ---
RN NOTE - PAIN PT C/O ACHING PAIN IN RIGHT ANTERIOR LEG, RATED 10/10 ON PAIN SCALE. VSS. PER PT REQUEST, ADMINISTERED DILAUDID 2MG IV Q4H PRN FOR PAIN. WILL CONTINUE TO MONITOR PT.
[2021-03-28] MEDS: IV NS 0.9% 1,000 ML IV PRN (05:15)
--- NOTE | 2021-03-28 07:00 | NUR ---
MS RN CLOSING NOTE PT IS AWAKE IN BED. A/O X3, ABLE TO MAKE NEEDS KNOWN. PT IS STABLE ON ROOM AIR. NO SOB OR S/S OF RESPIRATORY DISTRESS NOTED. NO C/O OF PAIN OR DISCOMFORT AT THIS TIME. PT NOTED WITH WOUND VAC AT RT LEG. IV ACCESS IN JESS PICC LINE INFUSING NS @ 75ML/HR, INTACT AND PATENT. BETTS CATH IN PLACE DRAINING CLEAR YELLOW URINE. ALL NEEDS HAVE BEEN MET. PAIN MANAGEMENT ADMINISTERED PER ORDER. SAFETY PRECAUTIONS MAINTAINED AT ALL TIMES. BED IN LOWEST LOCKED POSITION, HOB ELEVATED, SIDE RAILS UP X2. CALL LIGHT AND TABLE WITHIN REACH. WILL ENDORSE TO ONCOMING NURSE FOR JAMEY.
[2021-03-28 07:32] LABS: BASOPHILS # (AUTO) 0.1 K/uL (0.0-0.2); BASOPHILS % (AUTO) 1.1 % (0.0-2.0); EOSINOPHILS % (AUTO) 2.3 % (0.0-6.0); HEMATOCRIT 26 % (39-51); HEMOGLOBIN 8.6 g/dL (13.5-17.5); LYMPHOCYTES # (AUTO) 1.7 K/uL (0.8-4.8); LYMPHOCYTES % (AUTO) 17.7 % (20.0-44.0); MEAN CORPUSCULAR HGB CONC 33 g/dl (31.0-36.0); MEAN CORPUSCULAR VOLUME 88 fL (80-96); MONOCYTES # (AUTO) 0.9 K/uL (0.1-1.30); MONOCYTES % (AUTO) 9.7 % (2.0-12.0); NEUTROPHILS # (AUTO) 6.5 K/uL (1.8-8.9); NEUTROPHILS % (AUTO) 69.2 % (43.0-81.0); PLATELET COUNT (AUTO) 433 K/uL (150-450); RED BLOOD CELL COUNT(AUTO) 2.94 MIL/uL (4.5-6.0); WHITE BLOOD COUNT (AUTO) 9.4 K/uL (4.3-11.0)
[2021-03-28] MEDS: NEPRO VAN 237 ML CAN PO SCH ×2 (08:06→17:26)
[2021-03-28] MEDS: PANTOPRAZOLE 40 MG TABLET.DR PO SCH (08:06)
[2021-03-28 08:27] VITALS: BP 115/70
[2021-03-28 08:54] LABS: CALCIUM, SERUM 8.5 mg/dL (8.5-10.1); CREATININE 1.4 mg/dL (0.6-1.3); POTASSIUM 3.6 mmol/L (3.5-5.1)
[2021-03-28 11:05] VITALS: BP 115/70
[2021-03-28] MEDS: CEFEPIME 1 GM in IV D5W 50 ML IV SCH (11:32)
[2021-03-28 16:37] VITALS: BP 116/69
--- NOTE | 2021-03-28 19:20 | NUR ---
MS/RN CLOSING NOTES: PATIENT IN BED, ALERT AND ORIENTED X3, ABLE TO MAKE NEEDS KNOWN. STABLE ON ROOM AIR. NO COMPLAINTS OF PAIN AND DISCOMFORT AT THIS TIME, ON WOUND VACC AT RT LEG. PATIENT HAS JESS PICC LINE ON SALINE LOCK. BETTS CATHETER IN PLACED DRAINING INTO A CLEAR YELLOW URINE. ALL NEEDS MET. SAFETY PRECAUTIONS IN PLACED: BED LOCKED ON LOWEST POSITION, SIDE RAILS UPX2, CALL LIGHT WITHIN EASY REACH. WILL ENDORSE TO THE NEXT SHIFT FOR JAMEY.
--- NOTE | 2021-03-28 19:45 | NUR ---
MS RN OPENING NOTES PATIENT WAS LAST SEEN SLEEPING IN BED. PATIENT'S ALERT AND ORIENTED X4. PATIENT'S STABLE ON ROOM AIR. PATIENT HAS JESS PICC LINE ON SALINE LOCK. BETTS CATHETER IN PLACE. PATIENT'S IN NO ACUTE DISTRESS AT THIS TIME. SAFETY MEASURES IN PLACE: BED LOCKED, BED ALARM ON, SIDE RAILS UPX3, AND CALL LIGHT WITHIN REACH OF THE PATIENT. WILL CONTINUE TO MONITOR THE PATIENT.
[2021-03-28 20:26] VITALS: BP 118/75
--- NOTE | 2021-03-28 23:02 | NUR ---
MS RN NOTES PATIENT C/O 9/10 PAIN. PATIENT WAS GIVEN 2 MG OF DILAUDID IV. WILL CONTINUE TO MONITOR THE PATIENT.
[2021-03-29] MEDS: HYDROMORPHONE INJ 2 MG/ML DISP.SYRIN IV PRN ×5 (03:23→20:54)
--- NOTE | 2021-03-29 03:23 | NUR ---
MS RN NOTES PATIENT C/O 10/10 PAIN. PATIENT WAS GIVEN 2 MG OF DILAUDID IV. WILL CONTINUE TO MONITOR THE PATIENT.
[2021-03-29] MEDS: METRONIDAZOLE 500 MG TABLET PO SCH ×3 (03:41→18:25)
--- NOTE | 2021-03-29 07:02 | NUR ---
MS RN CLOSING NOTES PATIENT WAS LAST SEEN SLEEPING IN BED. PATIENT'S ALERT AND ORIENTED X4. PATIENT'S STABLE ON ROOM AIR. PATIENT HAS JESS PICC LINE ON SALINE LOCK. BETTS CATHETER IN PLACE. PATIENT'S IN NO ACUTE DISTRESS AT THIS TIME. SAFETY MEASURES IN PLACE: BED LOCKED, BED ALARM ON, SIDE RAILS UPX3, AND CALL LIGHT WITHIN REACH OF THE PATIENT. WILL ENDORSE CARE TO THE DAY SHIFT NURSE.
[2021-03-29 07:03] LABS: BASOPHILS # (AUTO) 0.1 K/uL (0.0-0.2); EOSINOPHILS % (AUTO) 2.6 % (0.0-6.0); HEMATOCRIT 27 % (39-51); LYMPHOCYTES # (AUTO) 2.1 K/uL (0.8-4.8); LYMPHOCYTES % (AUTO) 23.6 % (20.0-44.0); MEAN CORPUSCULAR HGB CONC 34 g/dl (31.0-36.0); MEAN CORPUSCULAR VOLUME 88 fL (80-96); MONOCYTES # (AUTO) 0.8 K/uL (0.1-1.30); MONOCYTES % (AUTO) 9.3 % (2.0-12.0); NEUTROPHILS # (AUTO) 5.7 K/uL (1.8-8.9); NEUTROPHILS % (AUTO) 63.5 % (43.0-81.0); PLATELET COUNT (AUTO) 469 K/uL (150-450); RED BLOOD CELL COUNT(AUTO) 3.07 MIL/uL (4.5-6.0)
--- NOTE | 2021-03-29 07:40 | NUR ---
MS RN OPENING NOTE RECEIVED PATIENT IN BED, ASLEEP, EASY TO AROUSE. ALERT AND ORIENTED X 4. NO S/S OF DISTRESS NOTED. BREATHING IS EVEN AND UNLABORED. IV ACCESS JESS PICCLINE PATENT AND INTACT. PATIENT NOTED WITH WOUND VAC AND FC, PATENT AND DRAINING WELL. SAFETY MEASURES IN PLACE WITH BED LOCKED AND LOW POSITION, SIDE RAILS UP X 2. CALL LIGHT WITHIN REACH. WILL CONTINUE TO MONITOR THROUGHOUT SHIFT.
[2021-03-29 08:00] VITALS: BP 117/75
[2021-03-29] MEDS: NEPRO VAN 237 ML CAN PO SCH ×2 (08:01→16:40)
[2021-03-29] MEDS: PANTOPRAZOLE 40 MG TABLET.DR PO SCH (08:13)
--- NOTE | 2021-03-29 09:28 | NUR ---
WOUND CARE CONSULT: KCI WOUND VAC FUNCTIONING WELL TO RT LEG WOUNDS AT 125mmHg CONTINUOUS SETTING. CANISTER CHANGED WITH 800cc RED DRAINAGE.
[2021-03-29 09:57] LABS: ALBUMIN 2.2 g/dL (3.4-5.0); BILIRUBIN,TOTAL 0.2 mg/dL (0.2-1.0); CALCIUM, SERUM 8.7 mg/dL (8.5-10.1); CREATININE 1.2 mg/dL (0.6-1.3); MAGNESIUM 1.7 mg/dL (1.8-2.4); PHOSPHORUS 4.2 mg/dL (2.5-4.9); TOTAL PROTEIN, SERUM 7.5 g/dL (6.4-8.2)
[2021-03-29] MEDS: VANCOMYCIN 1 GM in IV D5W 250ml IV SCH ×2 (10:07→17:54)
[2021-03-29] MEDS: CEFEPIME 1 GM in IV D5W 50 ML IV SCH (12:02)
[2021-03-29] MEDS: MICAFUNGIN SODIUM 100 MG in IV NS 0.9% 100 ML IV SCH (14:50)
[2021-03-29 16:00] VITALS: BP 132/77
[2021-03-29] MEDS: LORAZEPAM 1 MG TABLET PO PRN (19:23)
--- NOTE | 2021-03-29 19:25 | NUR ---
MS RN CLOSING NOTE PATIENT IN BED, RESTING COMFORTABLY. ALERT AND ORIENTED X 4. NO S/S OF DISTRESS NOTED. BREATHING IS EVEN AND UNLABORED. PATIENT WITH WOUND VAC AND FC, PATENT AND DRAINING WELL. 90ML OUTPUT FROM WOUND VAC. ALL NEEDS MET THROUGHOUT SHIFT. WOUND TREATMENT DONE. SAFETY MEASURES MAINTAINED. WILL ENDORSE TO ONCOMING SHIFT.
--- NOTE | 2021-03-29 19:32 | NUR ---
RN NOTES PATIENT IN BED, RESTING COMFORTABLY. ALERT AND ORIENTED X 4. NO S/S OF DISTRESS NOTED. BREATHING IS EVEN AND UNLABORED. PATIENT WITH WOUND VAC AND FC, PATENT AND DRAINING WELL. 90ML OUTPUT FROM WOUND VAC. ALL NEEDS MET AT THIS TIME. WOUND TREATMENT DONE. SAFETY MEASURES MAINTAINED. WILL CONTINUE TO MONITOR.
[2021-03-29 20:00] VITALS: BP 115/55
[2021-03-29] MEDS: CEFEPIME 2 GM in IV D5W 100 ML IV SCH (20:50)
--- NOTE | 2021-03-29 21:35 | NUR ---
RN NOTES PT REPORTED PAIN 10/10 IN A NUMERIC PAIN SCALE PRN DILAUDID PROVIDED. WILL CONTINUE TO MONITOR.
[2021-03-30] MEDS: HYDROMORPHONE INJ 2 MG/ML DISP.SYRIN IV PRN ×6 (01:02→21:48)
[2021-03-30] MEDS: VANCOMYCIN 1 GM in IV D5W 250ml IV SCH ×2 (01:02→16:57)
--- NOTE | 2021-03-30 01:29 | NUR ---
RN NOTES PT REPORTED PAIN 10/10 IN A NUMERIC PAIN SCALE PRN DILAUDID PROVIDED WILL CONTINUE TO MONITOR.
[2021-03-30] MEDS: METRONIDAZOLE 500 MG TABLET PO SCH ×4 (03:15→18:44)
--- NOTE | 2021-03-30 04:59 | NUR ---
RN NOTES PT REPORTED PAIN PRN DILAUDID PROVIDED. WILL CONTINUE TO MONITOR.
[2021-03-30] MEDS: CEFEPIME 2 GM in IV D5W 100 ML IV SCH ×3 (05:03→20:16)
--- NOTE | 2021-03-30 06:34 | NUR ---
RN NOTES PATIENT IN BED, RESTING COMFORTABLY. ALERT AND ORIENTED X 4. NO S/S OF DISTRESS NOTED. BREATHING IS EVEN AND UNLABORED. PATIENT WITH WOUND VAC AND FC, PATENT AND DRAINING WELL. 100ML OUTPUT FROM WOUND VAC. ALL NEEDS MET AT THIS TIME. PT NPO SINCE MIDNIGHT FOR PROCEDURE TODAY @10 AM. ATTEMPTED TO INSERT IV UNABLE TO FIND VEIN INFORMED CHARGE NURSE CHARGE NURSE WILL ATTEMPT WELL. SAFETY MEASURES MAINTAINED. WILL ENDORSE CARE.
[2021-03-30 06:57] LABS: BASOPHILS # (AUTO) 0.1 K/uL (0.0-0.2); BASOPHILS % (AUTO) 1.2 % (0.0-2.0); EOSINOPHILS % (AUTO) 1.6 % (0.0-6.0); HEMATOCRIT 31 % (39-51); HEMOGLOBIN 10.1 g/dL (13.5-17.5); LYMPHOCYTES # (AUTO) 1.5 K/uL (0.8-4.8); LYMPHOCYTES % (AUTO) 19.2 % (20.0-44.0); MEAN CORPUSCULAR HGB CONC 33 g/dl (31.0-36.0); MEAN CORPUSCULAR VOLUME 87 fL (80-96); MONOCYTES # (AUTO) 0.6 K/uL (0.1-1.30); NEUTROPHILS # (AUTO) 5.3 K/uL (1.8-8.9); PLATELET COUNT (AUTO) 490 K/uL (150-450); RED BLOOD CELL COUNT(AUTO) 3.58 MIL/uL (4.5-6.0); WHITE BLOOD COUNT (AUTO) 7.6 K/uL (4.3-11.0)
--- NOTE | 2021-03-30 07:15 | NUR ---
MS RN OPENING NOTE RECEIVED PATIENT ON BED ALERT AND ORIENTED X 4. NO S/S OF DISTRESS NOTED. BREATHING IS EVEN AND UNLABORED. IV ACCESS JESS PICC LINE PATENT AND INTACT. PATIENT NOTED WITH WOUND VAC ON RIGHT LOWER EXTREMITY AND FC, PATENT AND DRAINING WELL. PATIENT MAINTAINED ON NPO FOR SCHEDULED PROCEDURE TODAY. SAFETY MEASURES IN PLACE WITH BED LOCKED AND LOW POSITION, SIDE RAILS UP X 2. CALL LIGHT WITHIN REACH. WILL CONTINUE TO MONITOR PATIENT.
[2021-03-30 07:25] LABS: ALBUMIN 2.3 g/dL (3.4-5.0); BILIRUBIN,TOTAL 0.2 mg/dL (0.2-1.0); CALCIUM, SERUM 8.5 mg/dL (8.5-10.1); CREATININE 1.2 mg/dL (0.6-1.3); MAGNESIUM 1.6 mg/dL (1.8-2.4); PHOSPHORUS 3.9 mg/dL (2.5-4.9); POTASSIUM 3.8 mmol/L (3.5-5.1)
[2021-03-30 08:00] VITALS: BP 110/74
[2021-03-30] MEDS: NEPRO VAN 237 ML CAN PO SCH ×2 (08:00→16:57)
[2021-03-30] MEDS: PANTOPRAZOLE 40 MG TABLET.DR PO SCH (09:00)
--- NOTE | 2021-03-30 09:30 | NUR ---
MS RN NOTE PATIENT PICKED UP BY OR NURSES FOR SCHEDULED PROCEDURE. PATIENT REMAINS STABLE.
[2021-03-30] MEDS ORDERED: BUPIVACAINE MPF 0.5% W/EPI INJ 30 ML VIAL ONE (09:59)
[2021-03-30] MEDS ORDERED: POLYMYXIN B SULFATE 500,000 UNITS ONE (09:59)
[2021-03-30] MEDS ORDERED: BUPIVACAINE 0.5 % PF 150 MG/30 ML VIAL ONE (09:59)
[2021-03-30] MEDS ORDERED: MIDAZOLAM HCL 2 MG/2ML VIAL ONE (10:01)
[2021-03-30] MEDS ORDERED: HYDROMORPHONE INJ 2 MG/ML DISP.SYRIN ONE (10:01)
[2021-03-30] MEDS ORDERED: SEVOFLURANE 250 ML BOTTLE IH ONE (10:05)
[2021-03-30] MEDS ORDERED: FENTANYL PF 100MCG/2ML AMPUL ONE (11:34)
--- NOTE | 2021-03-30 11:45 | NUR ---
MS RN NOTE PATIENT CAME BACK FROM OR. AWAKE AND ORIENTED, NO COMPLAIN OF PAIN OR DISCOMFORT. WITH ORDERS FAXED TO PHARMACY. WILL RESUME PATIENT'S DIET AND MEDICATIONS ORDERED. IN STABLE CONDITION. WILL CONTINUE TO MONITOR PATIENT.
[2021-03-30] MEDS: MICAFUNGIN SODIUM 100 MG in IV NS 0.9% 100 ML IV SCH (13:44)
--- NOTE | 2021-03-30 14:00 | NUR ---
MS RN NOTE PATIENT FOR CORRECTION OF MAGNESIUM. MAGNESIUM STARTED ORDERED.
[2021-03-30] MEDS: Magnesium 1GM/D5W 100ML PREMIX 100 ML IV SCH ×2 (15:24→16:20)
[2021-03-30] MEDS: LORAZEPAM 1 MG TABLET PO PRN (15:51)
[2021-03-30 16:00] VITALS: BP 108/66
--- NOTE | 2021-03-30 19:20 | NUR ---
MS RN CLOSINGNOTE PATIENT ON BED ALERT AND ORIENTED X 4. NO S/S OF DISTRESS NOTED. BREATHING IS EVEN AND UNLABORED. IV ACCESS JESS PICC LINE PATENT AND INTACT. PATIENT NOTED WITH WOUND VAC ON RIGHT LOWER EXTREMITY AND FC, PATENT AND DRAINING WELL. SAFETY MEASURES IN PLACE WITH BED LOCKED AND LOW POSITION, SIDE RAILS UP X 2. CALL LIGHT WITHIN REACH. WILL ENDORSE PATIENT FOR CONTINUITY OF CARE.
--- NOTE | 2021-03-30 19:30 | NUR ---
MS RN OPENING NOTE RECEIVED PT AWAKE IN BED. A/O X3, ABLE TO MAKE NEEDS KNOWN. PT IS STABLE ON ROOM AIR. NO SOB OR S/S OF RESPIRATORY DISTRESS NOTED. NO C/O OF PAIN OR DISCOMFORT AT THIS TIME. PT NOTED WITH WOUND VAC AT RLE. IV ACCESS IN JESS PICC LINE INFUSING NS, INTACT AND PATENT. BETTS CATH IN PLACE DRAINING CLEAR YELLOW URINE. SAFETY PRECAUTIONS MAINTAINED. BED IN LOWEST LOCKED POSITION, HOB ELEVATED, SIDE RAILS UP X2. CALL LIGHT AND TABLE WITHIN REACH. WILL CONTINUE WITH PLAN OF CARE.
[2021-03-30 20:30] VITALS: BP 110/66
[2021-03-31] MEDS: HYDROMORPHONE INJ 2 MG/ML DISP.SYRIN IV PRN ×6 (02:08→22:41)
--- NOTE | 2021-03-31 02:08 | NUR ---
RN NOTE - PAIN PT C/O ACHING PAIN IN RIGHT ANTERIOR LEG, RATED 8/10 ON PAIN SCALE. VSS. PER PT REQUEST, ADMINISTERED DILAUDID 2MG IV Q4H PRN FOR PAIN. WILL CONTINUE TO MONITOR PT.
[2021-03-31] MEDS: METRONIDAZOLE 500 MG TABLET PO SCH ×3 (02:10→18:05)
[2021-03-31] MEDS: CEFEPIME 2 GM in IV D5W 100 ML IV SCH ×3 (04:06→20:55)
[2021-03-31] MEDS: VANCOMYCIN 1 GM in IV D5W 250ml IV SCH ×2 (04:52→17:00)
--- NOTE | 2021-03-31 06:33 | NUR ---
MS RN CLOSING NOTE PT IS IN BED WITH EYES CLOSED, EASY TO AROUSE. A/O X3. PT IS STABLE ON ROOM AIR. NO SOB OR S/S OF RESPIRATORY DISTRESS NOTED. NO C/O OF PAIN OR DISCOMFORT AT THIS TIME. PT NOTED WITH WOUND VAC AT RLE. IV ACCESS IN JESS PICC LINE, INTACT AND PATENT. BETTS CATH IN PLACE DRAINING CLEAR YELLOW URINE. ALL NEEDS HAVE BEEN MET. PAIN MANAGEMENT ADMINISTERED PER ORDER. SAFETY PRECAUTIONS MAINTAINED AT ALL TIMES. BED IN LOWEST LOCKED POSITION, HOB ELEVATED, SIDE RAILS UP X2. CALL LIGHT AND TABLE WITHIN REACH. WILL ENDORSE TO ONCOMING NURSE FOR JAMEY.
--- NOTE | 2021-03-31 07:44 | NUR ---
MS/RN OPENING NOTES RECEIVED PATIENT ON BED SLEEPING EASILY AWAKEN BY NAME AND LIGHT TOUCH. PATIENT IS ON ROOM AIR. PATIENT IN NO APPARENT RESPIRATORY DISTRESS NOTED. NO COMPLAINED OF PAIN NOTED AT THIS TIME. WILL CONTINUE TO MONITOR.
[2021-03-31] MEDS: PANTOPRAZOLE 40 MG TABLET.DR PO SCH (07:46)
[2021-03-31 08:00] VITALS: BP 111/75
[2021-03-31] MEDS: MICAFUNGIN SODIUM 100 MG in IV NS 0.9% 100 ML IV SCH (08:22)
[2021-03-31] MEDS: NEPRO VAN 237 ML CAN PO SCH ×2 (08:22→17:24)
--- NOTE | 2021-03-31 08:25 | NUR ---
WOUND CARE: KCI VAC FUNCTIONING WELL TO RT LOWER EXTREMITY AT 125mmHg CONTINUOUS SETTING. APPROX 100cc RED DRAINAGE IN CANISTER.
--- NOTE | 2021-03-31 10:28 | NUR ---
MS/RN NOTES DR. GRIGGS ORDER PICC LINE REINSERTION. NOTED AND CARRIED OUT.
--- NOTE | 2021-03-31 11:26 | NUR ---
MS/RN NOTES DR. GRIGGS ORDER MIDLINE INSERTION AND CANCEL PICC LINE NOTED AND CARRIED OUT.
[2021-03-31 12:35] LABS: CALCIUM, SERUM 7.9 mg/dL (8.5-10.1); CREATININE 1.1 mg/dL (0.6-1.3); MAGNESIUM 1.9 mg/dL (1.8-2.4); POTASSIUM 4.3 mmol/L (3.5-5.1)
[2021-03-31 16:00] VITALS: BP 114/75
--- NOTE | 2021-03-31 19:05 | NUR ---
MS/RN CLOSING NOTES PATIENT IS ON BED ALERT AND ORIENTED X4. PATIENT IS ON ROOM AIR. PATIENT IN NO APPARENT RESPIRATORY DISTRESS NOTED. NO COMPLAINED OF PAIN AT THIS TIME. SEEN AND EXAMINED BY MD WITH ORDERS MADE AND CARRIED OUT. ALL DUE MEDICATIONS WAS GIVEN.WOUND DRESSING DONE. SAFETY PRECAUTIONS WAS IN PLACED. BED IN LOWEST POSITION AND LOCKED. SIDE ARILS UP X2. CALL LIGHT WITHIN REACH. WILL ENDORSE TO ELECTRICAL PROSPECTOR RN FOR CONTINUITY OF CARE.
--- NOTE | 2021-03-31 19:54 | NUR ---
MS RN OPENING NOTES RECEIVED PATIENT IS IN BED. AOx4. PATIENT IS ON ROOM AIR AND TOLERATING WELL. NO SOB NOTED. NO S/SX OF RESPIRATORY DISTRESS NOTED. IV ACCESS IN PAULINA MIDLINE #18G. IV IS INTACT, PATENT, FLUSHING WELL, AND SALINE LOCKED. SAFETY PRECAUTIONS IN PLACE: BED IN LOWEST, LOCKED POSITION, SIDE RAILS UP X2, BRAKES ON. CALL LIGHT AND TABLE WITHIN REACH. WILL CONTINUE TO MONITOR.
[2021-03-31 20:00] VITALS: BP 128/57
--- NOTE | 2021-03-31 22:42 | NUR ---
ADMINISTERED DILAUDID PER MD ORDER FOR PAIN. VITAL SIGNS WNL. WILL CONTINUE TO MONITOR.
[2021-04-01] MEDS: HYDROMORPHONE INJ 2 MG/ML DISP.SYRIN IV PRN ×6 (02:41→23:43)
[2021-04-01] MEDS: METRONIDAZOLE 500 MG TABLET PO SCH ×3 (03:01→18:18)
--- NOTE | 2021-04-01 03:17 | NUR ---
ADMINISTERED DILAUDID @ 0241 PER MD ORDER FOR PAIN. VS WNL. WILL CONTINUE TO MONITOR.
[2021-04-01] MEDS: VANCOMYCIN 1 GM in IV D5W 250ml IV SCH (04:00)
--- NOTE | 2021-04-01 04:01 | NUR ---
WITHHELD BOTH DOSES OF VANCOMYCIN AT 0500 BECAUSE VANCOMYCIN TROUGH WAS 26. MD ORDER WANTS VANCOMYCIN TROUGH TO BE 15-20.
[2021-04-01] MEDS: CEFEPIME 2 GM in IV D5W 100 ML IV SCH ×3 (04:03→21:09)
[2021-04-01] MEDS ORDERED: VANCOMYCIN 1 GM in IV D5W 250 ML IV SCH (05:00)
--- NOTE | 2021-04-01 06:07 | NUR ---
ATTEMPTED TO DRAW BLOOD FROM MIDLINE AND WAS NOT ABLE TO. BASIC COMBATANT SWIMMER TRIED TO DRAW AM LABS AND PATIENT REFUSED.
--- NOTE | 2021-04-01 06:28 | NUR ---
MS RN CLOSING NOTES PATIENT IS IN BED, ASLEEP, AWAKES TO VERBAL STIMULI. AOx4. PATIENT IS ON ROOM AIR AND TOLERATING WELL. NO SOB NOTED. NO S/SX OF RESPIRATORY DISTRESS NOTED. IV ACCESS IN PAULINA MIDLINE #18G. IV IS INTACT, PATENT, FLUSHING WELL, AND SALINE LOCKED. TREATED PAIN THROUGHOUT SHIFT. ALL NEEDS MET. PT KEPT CLEAN AND DRY. SAFETY PRECAUTIONS IN PLACE: BED IN LOWEST, LOCKED POSITION, SIDE RAILS UP X2, BRAKES ON. CALL LIGHT AND TABLE WITHIN REACH. WILL ENDORSE TO ONCOMING SHIFT.
--- NOTE | 2021-04-01 06:43 | NUR ---
ADMINISTERED DILAUDID @ 0637. VITAL SIGNS WNL. WILL CONTINUE TO MONITOR.
[2021-04-01] MEDS: PANTOPRAZOLE 40 MG TABLET.DR PO SCH (07:43)
[2021-04-01 08:00] VITALS: BP 129/76
--- NOTE | 2021-04-01 08:55 | NUR ---
RN NOTES VANCOMYCIN 250MG IV CAN ADMINISTERED EVEN THOUGH RESULT IS VANCOMYCIN TROUGH 26 DATED 03/28/2021 PER [facility] PHARMACIST.
[2021-04-01] MEDS: MICAFUNGIN SODIUM 100 MG in IV NS 0.9% 100 ML IV SCH (08:59)
[2021-04-01] MEDS: NEPRO VAN 237 ML CAN PO SCH ×2 (09:00→17:05)
[2021-04-01] MEDS: VANCOMYCIN 1 GM in IV D5W 250 ML IV SCH (09:31)
[2021-04-01] MEDS: FLUCONAZOLE (100 MG) 100 MG TABLET PO SCH (13:56)
[2021-04-01 15:49] LABS: CALCIUM, SERUM 8.2 mg/dL (8.5-10.1); CREATININE 1.2 mg/dL (0.6-1.3); POTASSIUM 3.8 mmol/L (3.5-5.1)
[2021-04-01 16:00] VITALS: BP 127/78
--- NOTE | 2021-04-01 19:26 | NUR ---
MS/RN CLOSING NOTES PATIENT IS ON BED ALERT AND ORIENTED X4. PATIENT IS ON ROOM AIR. PATIENT IN NO APPARENT RESPIRATORY DISTRESS NOTED. NO COMPLAINED OF PAIN AT THIS TIME. SEEN AND EXAMINED BY MD WITH ORDERS MADE AND CARRIED OUT. ALL DUE MEDICATIONS WAS GIVEN.WOUND DRESSING DONE. SAFETY PRECAUTIONS WAS IN PLACED. BED IN LOWEST POSITION AND LOCKED. SIDE ARILS UP X2. CALL LIGHT WITHIN REACH. WILL ENDORSE TO STABLE MANAGER RN FOR CONTINUITY OF CARE.
--- NOTE | 2021-04-01 19:30 | NUR ---
MS RN OPENING NOTES PATIENT WAS LAST SEEN SLEEPING IN BED. PATIENT'S ALERT AND ORIENTEDX4. PATIENT'S STABLE ON ROOM AIR. PAULINA MIDLINE NOTED WHICH IS INTACT, PATENT, AND FLUSHING WELL. PATIENT'S IN NO ACUTE DISTRESS AT THIS TIME. SAFETY MEASURES IN PLACE: BED LOCKED, BED ALARM ON, SIDE RAILS UPX3, AND CALL LIGHT WITHIN REACH OF THE PATIENT. WILL CONTINUE TO MONITOR THE PATIENT.
--- NOTE | 2021-04-01 19:30 | NUR ---
MS RN OPENING NOTES PATIENT WAS LAST SEEN SLEEPING IN BED. PATIENT;
--- NOTE | 2021-04-01 19:40 | NUR ---
MS RN NOTES PATIENT C/O 10/10 PAIN. PATIENT WAS GIVEN DILAUDID 2MG IV. WILL CONTINUE TO MONITOR THE PATIENT.
[2021-04-01 20:00] VITALS: BP 123/83
[2021-04-01] MEDS: TEMAZEPAM 15 MG CAPSULE PO PRN (22:12)
[2021-04-01] MEDS: LORAZEPAM 1 MG TABLET PO PRN (22:13)
[2021-04-02] MEDS: METRONIDAZOLE 500 MG TABLET PO SCH ×3 (02:03→19:13)
--- NOTE | 2021-04-02 02:21 | NUR ---
MS RN NOTES WOUND CARE ORDERED ON RIGHT BACK ABRASIONS WAS PERFORMED. WILL CONTINUE TO MONITOR THE PATIENT.
[2021-04-02] MEDS: HYDROMORPHONE INJ 2 MG/ML DISP.SYRIN IV PRN ×6 (03:49→22:21)
[2021-04-02] MEDS: CEFEPIME 2 GM in IV D5W 100 ML IV SCH ×3 (04:36→21:07)
[2021-04-02] MEDS: PANTOPRAZOLE 40 MG TABLET.DR PO SCH (07:30)
--- NOTE | 2021-04-02 07:30 | NUR ---
MS RN OPENING NOTES RECEIVED PATIENT ON BED, AWAKE AND A/O X 4. ON ROOM AIR TOLERATING WELL. NO SOB NOTED. NOT IN DISTRESS. WITH COMPLAINTS OF PAIN AT THE LEFT LEG WITH A PAIN SCALE OF 8/10. PAIN MEDS GIVEN. COMFORT MEASURES PROVIDED. WITH IV ACCESS AT LEFT UPPER ARM MIDLINE WITH IVF NS AT 75ML/HR. SAFETY MEASURES IN PLACED. CALL LIGHT WITHIN REACH. BED ON LOWEST AND LOCKED POSITION, SIDE RAILS UP X2. WILL CONTINUE TO MONITOR.
--- NOTE | 2021-04-02 07:34 | NUR ---
WOUND CARE: KCI VAC FUNCTIONING WELL TO RT LOWER EXTREMITY WOUNDS AT 125mmHg CONTINUOUS SETTING WITH APPROX 500cc RED DRAINAGE IN CANISTER.
[2021-04-02] MEDS: NEPRO VAN 237 ML CAN PO SCH ×2 (08:00→18:09)
[2021-04-02] MEDS: VANCOMYCIN 1 GM in IV D5W 250 ML IV SCH ×2 (08:00→18:09)
[2021-04-02 08:17] VITALS: BP 132/83
[2021-04-02] MEDS ORDERED: POLYMYXIN B SULFATE 0 UNITS ONE (09:44)
[2021-04-02] MEDS ORDERED: ANESTHESIA TRAY IN PYXIS 1 EA TRAY MC ONE (09:44)
[2021-04-02] MEDS ORDERED: LIDOCAINE 1% INJ 50 ML MDV IJ ONE (09:44)
[2021-04-02] MEDS ORDERED: BUPIVACAINE 0.5 % PF 150 MG/30 ML VIAL ONE (09:44)
[2021-04-02] MEDS ORDERED: FENTANYL PF 250MCG/5ML AMPUL ONE ×2 (10:04)
[2021-04-02] MEDS ORDERED: MIDAZOLAM HCL 2 MG/2ML VIAL ONE (10:05)
[2021-04-02] MEDS ORDERED: HYDROMORPHONE INJ 2 MG/ML DISP.SYRIN ONE (10:05)
[2021-04-02] MEDS ORDERED: FAMOTIDINE/PF INJ 20 MG/2 ML VIAL IV ONE (10:05)
[2021-04-02] MEDS: FLUCONAZOLE (100 MG) 100 MG TABLET PO SCH (13:11)
[2021-04-02 16:31] VITALS: BP 106/68
--- NOTE | 2021-04-02 19:33 | NUR ---
MS RN CLOSING NOTES PATIENT ON BED, AWAKE AND A/O X 4. ON ROOM AIR TOLERATING WELL. NO SOB NOTED. NOT IN DISTRESS. WITH COMPLAINTS OF PAIN AT THE LEFT LEG WITH A PAIN SCALE OF 8/10. PAIN MEDS GIVEN. COMFORT MEASURES PROVIDED. WITH IV ACCESS AT LEFT UPPER ARM MIDLINE WITH IVF NS AT 75ML/HR. SAFETY MEASURES IN PLACED. CALL LIGHT WITHIN REACH. BED ON LOWEST AND LOCKED POSITION, SIDE RAILS UP X2. WILL ENDORSE TO NEXT SHIFT FOR JAMEY.
--- NOTE | 2021-04-02 20:00 | NUR ---
MS RN NOTE PATIENT AWAKE IN BED, ALERT/ORIENTED X 4, PT ABLE TO MAKE NEEDS KNOWN. PT DENIES PAIN AT THIS TIME. PT STABLE ON RA, NO S/S OF DISTRESS OR SOB NOTED, BREATHING EVEN AND UNLABORED. PAULINA MIDLINE INTACT AND FLUSHING WELL, SALINE LOCKED. BETTS CATH INTACT AND DRAINING WELL. RIGHT LEG WOUND VAC IN PLACE. SAFETY MEASURES IN PLACE: CALL LIGHT WITHIN REACH, SIDE RAILS UP X 2, BED LOCKED IN LOW POSITION. WILL CONTINUE TO MONITOR PATIENT
[2021-04-02 20:42] VITALS: BP 126/70
--- NOTE | 2021-04-02 22:25 | NUR ---
MS RN NOTE PATIENT REPORTING 9/10 PAIN IN LEGS, DILAUDID IV GIVEN ORDERED. WILL CONTINUE TO MONITOR PATIENT
[2021-04-02 22:27] LABS: BASOPHILS # (AUTO) 0.1 K/uL (0.0-0.2); BASOPHILS % (AUTO) 0.7 % (0.0-2.0); EOSINOPHILS % (AUTO) 1.1 % (0.0-6.0); HEMATOCRIT 29 % (39-51); HEMOGLOBIN 9.2 g/dL (13.5-17.5); LYMPHOCYTES # (AUTO) 1.1 K/uL (0.8-4.8); LYMPHOCYTES % (AUTO) 7.6 % (20.0-44.0); MEAN CORPUSCULAR HGB CONC 32 g/dl (31.0-36.0); MEAN CORPUSCULAR VOLUME 91 fL (80-96); MONOCYTES # (AUTO) 0.4 K/uL (0.1-1.30); MONOCYTES % (AUTO) 2.6 % (2.0-12.0); NEUTROPHILS # (AUTO) 12.6 K/uL (1.8-8.9); PLATELET COUNT (AUTO) 377 K/uL (150-450); RED BLOOD CELL COUNT(AUTO) 3.16 MIL/uL (4.5-6.0); WHITE BLOOD COUNT (AUTO) 14.3 K/uL (4.3-11.0)
[2021-04-02 22:50] LABS: CALCIUM, SERUM 7.8 mg/dL (8.5-10.1); MAGNESIUM 1.7 mg/dL (1.8-2.4); PHOSPHORUS 4.3 mg/dL (2.5-4.9); POTASSIUM 4.5 mmol/L (3.5-5.1)
[2021-04-03] MEDS: HYDROMORPHONE INJ 2 MG/ML DISP.SYRIN IV PRN ×6 (01:21→21:04)
[2021-04-03] MEDS: METRONIDAZOLE 500 MG TABLET PO SCH ×3 (03:51→19:31)
[2021-04-03] MEDS: CEFEPIME 2 GM in IV D5W 100 ML IV SCH ×2 (05:17→16:32)
--- NOTE | 2021-04-03 07:27 | NUR ---
MS RN CLOSING NOTE PATIENT AWAKE IN BED, ALERT/ORIENTED X 4, PT ABLE TO MAKE NEEDS KNOWN. PT STABLE ON RA, NO S/S OF DISTRESS OR SOB NOTED, BREATHING EVEN AND UNLABORED. PAULINA MIDLINE INTACT AND FLUSHING WELL, SALINE LOCKED. BETTS CATH INTACT AND DRAINING WELL. RIGHT LEG WOUND VAC IN PLACE, LEFT LEG DRESSING CLEAN, DRY AND INTACT. MEDICATIONS GIVEN ORDERED, PT NEEDS MET THROUGHOUT SHIFT. SAFETY MEASURES IN PLACE: CALL LIGHT WITHIN REACH, SIDE RAILS UP X 2, BED LOCKED IN LOW POSITION, BED ALARM ON. ENDORSED TO DAY SHIFT NURSE FOR CONTINUITY OF CARE
--- NOTE | 2021-04-03 07:30 | NUR ---
MS RN OPENING NOTES RECEIVED PATIENT ON BED AWAKE AND A/O X4. ON ROOM AIR TOLERATING WELL. NO SOB NOTED. NOT IN DISTRESS. WITH COMPLAINT OF PAIN ON RIGHT LEG AT THE SCALE OF 8/10. PAIN MEDS GIVEN. COMFORT MEASURES PROVIDED. WITH IV ACCESS AT LEFT UPPER ARM MIDLINE, SALINE LOCKED, INTACT AND PATENT. WITH BETTS CATHETER INTACT AND DRAINING WELL. WITH RIGHT LEG WOUND VAC IN PLACE, LEFT LEG DRESSING CLEAN, DRY AND INTACT. SAFETY MEASURES IN PLACE. CALL LIGHT WITHIN REACH. BED ON LOWEST AND LOCKED POSITION, SIDE RAILS UP X2. WILL CONTINUE TO MONITOR.
[2021-04-03] MEDS: NEPRO VAN 237 ML CAN PO SCH ×2 (07:44→16:40)
[2021-04-03] MEDS: PANTOPRAZOLE 40 MG TABLET.DR PO SCH (07:44)
[2021-04-03 08:00] VITALS: BP 125/62
[2021-04-03] MEDS ORDERED: Magnesium 1GM/D5W 100ML PREMIX 100 ML IV SCH (12:00)
[2021-04-03] MEDS: FLUCONAZOLE (100 MG) 100 MG TABLET PO SCH (13:51)
[2021-04-03 16:00] VITALS: BP 116/82
--- NOTE | 2021-04-03 19:25 | NUR ---
MS RN OPENING NOTE RECEIVED PT RESTING IN BED, EASILY AROUSABLE, A/OX4, DENIES PAIN AT THIS TIME, STATES, "I WILL CALL YOU WHEN I NEED MY PAIN MEDICATION." RESPIRATIONS EVEN/UNLABORED. ON ROOM AIR. IV SITE: JESS PICC LINE INTACT/PATENT/FLUSHES WELL, WITH DRESSING C/D/I. PT IN NO ACUTE DISTRESS. SAFETY MEASURES IN PLACE, BED IN LOWEST LOCKED POSITION, S/R UPX2, CALL LIGHT WITHIN REACH. WILL CONT TO MONITOR.
--- NOTE | 2021-04-03 19:50 | NUR ---
MS RN CLOSING NOTES PATIENT ON BED RESTING AND A/O X4. ON ROOM AIR TOLERATING WELL. NO SOB NOTED. NOT IN DISTRESS. WITH NO COMPLAINTS OF PAIN OR DISCOMFORT. WITH IV ACCESS AT LEFT UPPER ARM MIDLINE, SALINE LOCKED, INTACT AND PATENT. WITH BETTS CATHETER INTACT AND DRAINING WELL. WITH RIGHT LEG WOUND VAC IN PLACE, LEFT LEG DRESSING CLEAN, DRY AND INTACT. SAFETY MEASURES IN PLACE. CALL LIGHT WITHIN REACH. BED ON LOWEST AND LOCKED POSITION, SIDE RAILS UP X2. WILL ENDORSE TO NEXT SHIFT FOR JAMEY.
[2021-04-03 20:02] VITALS: BP 117/60
[2021-04-03] MEDS: VANCOMYCIN 1 GM in IV D5W 250 ML IV SCH (20:14)
[2021-04-04] MEDS: HYDROMORPHONE INJ 2 MG/ML DISP.SYRIN IV PRN ×8 (00:18→21:02)
[2021-04-04] MEDS: METRONIDAZOLE 500 MG TABLET PO SCH ×3 (03:17→18:35)
[2021-04-04] MEDS: CEFEPIME 2 GM in IV D5W 100 ML IV SCH ×2 (04:11→16:37)
--- NOTE | 2021-04-04 06:48 | NUR ---
MS RN CLOSING NOTE PT RESTING IN BED, EASILY AROUSABLE TO STIMULI, A/OX4. NO C/O PAIN AT THIS TIME. ON ROOM AIR AND JING WELL. RESP EVEN/UNLABORED. IV SITE: JESS PICC LINE INTACT/PATENT/FLUSHES WELL, WITH DRESSING C/D/I. NO ACUTE EVENTS DURING THE NIGHT. SAFETY MEASURES MAINTAINED. ALL NEEDS ATTENDED TO.
[2021-04-04 07:21] LABS: CALCIUM, SERUM 8.7 mg/dL (8.5-10.1); CREATININE 1.2 mg/dL (0.6-1.3); POTASSIUM 4.3 mmol/L (3.5-5.1)
--- NOTE | 2021-04-04 07:38 | NUR ---
RN OPENING NOTE-\ PT RESTING IN BED, A/OX4, DENIES PAIN AT THIS TIME, STATES, RESPIRATIONS EVEN/UNLABORED. ON ROOM AIR. IV SITE: JESS PICC LINE INTACT/PATENT/FLUSHES WELL, WITH DRESSING C/D/I. PT IN NO ACUTE DISTRESS. SAFETY MEASURES IN PLACE, BED IN LOWEST LOCKED POSITION, S/R UPX2, CALL LIGHT WITHIN REACH. WILL CONT TO MONITOR.
[2021-04-04] MEDS: PANTOPRAZOLE 40 MG TABLET.DR PO SCH (08:06)
[2021-04-04] MEDS: NEPRO VAN 237 ML CAN PO SCH ×2 (08:06→16:42)
[2021-04-04] MEDS: PREGABALIN 25 MG CAPSULE PO SCH ×3 (10:53→16:32)
[2021-04-04] MEDS: FLUCONAZOLE (100 MG) 100 MG TABLET PO SCH (13:22)
--- NOTE | 2021-04-04 15:30 | NUR ---
RN NOTE- DRESSING CHANGE PERFORMED TO LLE. REMOVED EXISTING DRESSING. SCANT SERO-SANGINOUS DRAINAGE NOTED, MILD ERYTHEMA. CLEANSED W NS, COVERED W PETROLEUM DRESSING, 4X4 AND KERLIX . TOLERATED WELL. RLE W WOUND VAC IN PLACE. BACK ABRASIONS W MEPILEX IN PLACE.
[2021-04-04] MEDS: VANCOMYCIN 1 GM in IV D5W 250 ML IV SCH (17:37)
[2021-04-04] MEDS: LORAZEPAM 1 MG TABLET PO PRN (18:38)
--- NOTE | 2021-04-04 18:38 | NUR ---
RN NOTE- C/O ANXIETY . ATIVAN 1MG ADMINISTERED
--- NOTE | 2021-04-04 18:48 | NUR ---
RN CLOSING NOTE- PT RESTING IN BED, A/OX4. PAIN RELIEVED W DILAUDID Q3H. AT THIS TIME. ON ROOM AIR AND JING WELL. RESP EVEN/UNLABORED. IV SITE: JESS PICC LINE INTACT/PATENT/FLUSHES WELL, WITH DRESSING C/D/I.. SAFETY MEASURES MAINTAINED. ALL NEEDS ATTENDED TO.
--- NOTE | 2021-04-04 19:30 | NUR ---
MS RN NOTE PATIENT AWAKE IN BED, ALERT/ORIENTED X 4, PT ABLE TO MAKE NEEDS KNOWN. PT DENIES PAIN AT THIS TIME. PT STABLE ON RA, NO S/S OF DISTRESS OR SOB NOTED, BREATHING EVEN AND UNLABORED. JESS PICC LINE INTACT AND FLUSHING WELL. BETTS CATH INTACT AND DRAINING YELLOW URINE. RIGHT LEG WOUND VAC IN PLACE, RIGHT UPPER BACK DRESSING AND LEFT LEG DRESSING CLEAN, DRY AND INTACT. SAFETY MEASURES IN PLACE: CALL LIGHT WITHIN REACH, SIDE RAILS UP X 2, BED LOCKED IN LOW POSITION. WILL CONTINUE TO MONITOR PATIENT
[2021-04-04 20:46] VITALS: BP 117/77
--- NOTE | 2021-04-04 22:00 | NUR ---
MS RN NOTE PT REFUSED PICTURES OF WOUNDS, EXPLAINED BENEFITS BUT PATIENT STATED HE DIDN'T WANT THE DRESSING TO BE DONE ALL OVER AGAIN
[2021-04-05] MEDS: HYDROMORPHONE INJ 2 MG/ML DISP.SYRIN IV PRN ×8 (00:16→23:29)
[2021-04-05] MEDS: METRONIDAZOLE 500 MG TABLET PO SCH ×3 (03:10→18:01)
[2021-04-05] MEDS: CEFEPIME 2 GM in IV D5W 100 ML IV SCH ×2 (05:00→16:02)
--- NOTE | 2021-04-05 06:38 | NUR ---
MS RN CLOSING NOTE PATIENT AWAKE IN BED WATCHING TV, ALERT/ORIENTED X 4, PT ABLE TO MAKE NEEDS KNOWN. PT STABLE ON RA, NO S/S OF DISTRESS OR SOB NOTED, BREATHING EVEN AND UNLABORED. JESS PICC LINE INTACT AND FLUSHING WELL, SALINE LOCKED. BETTS CATH INTACT AND DRAINING YELLOW URINE. RIGHT LEG WOUND VAC IN PLACE, LEFT LEG DRESSING CLEAN, DRY AND INTACT, RIGHT UPPER BACK DRESSING CLEAN, DRY AND INTACT. MEDICATIONS GIVEN ORDERED, PT NEEDS MET THROUGHOUT SHIFT. SAFETY MEASURES IN PLACE: CALL LIGHT WITHIN REACH, SIDE RAILS UP X 2, BED LOCKED IN LOW POSITION, BED ALARM ON. WILL ENDORSE TO DAY SHIFT NURSE FOR CONTINUITY OF CARE
[2021-04-05 06:44] LABS: BASOPHILS # (AUTO) 0.1 K/uL (0.0-0.2); EOSINOPHILS % (AUTO) 2.8 % (0.0-6.0); HEMATOCRIT 26 % (39-51); HEMOGLOBIN 8.5 g/dL (13.5-17.5); LYMPHOCYTES # (AUTO) 2.6 K/uL (0.8-4.8); LYMPHOCYTES % (AUTO) 32.4 % (20.0-44.0); MEAN CORPUSCULAR HGB CONC 33 g/dl (31.0-36.0); MEAN CORPUSCULAR VOLUME 89 fL (80-96); MONOCYTES # (AUTO) 0.9 K/uL (0.1-1.30); MONOCYTES % (AUTO) 10.8 % (2.0-12.0); NEUTROPHILS # (AUTO) 4.3 K/uL (1.8-8.9); PLATELET COUNT (AUTO) 366 K/uL (150-450); RED BLOOD CELL COUNT(AUTO) 2.93 MIL/uL (4.5-6.0)
--- NOTE | 2021-04-05 07:22 | NUR ---
MS RN OPENING NOTES RECEIVED PT AWAKE IN BED IN NO ACUTE SIGNS OF DISTRESS. A/O X4. ABLE TO VERBALIZE NEEDS, DENIES PAIN OR ANY DISCOMFORTS AT THIS TIME. ON ROOM AIR, RESPIRATIONS EVEN AND UNLABORED. JESS PICC LINE INTACT, PATENT AND FLUSHES WELL. WOUND VAC IN PROGRESS AT 125MMHG TO RLE WOUND. BETTS IN PLACE, DRAINING CLEAR YELLOW URINE OUTPUT VIA GRAVITY. SAFETY MEASURES IN PLACE: BED IN LOWEST LOCKED POSITION, S/R UP X2 AND CALL LIGHT WITHIN REACH. WILL CONTINUE TO MONITOR.
[2021-04-05] MEDS: PANTOPRAZOLE 40 MG TABLET.DR PO SCH (07:43)
[2021-04-05] MEDS: NEPRO VAN 237 ML CAN PO SCH ×2 (07:44→17:04)
[2021-04-05 07:56] LABS: CALCIUM, SERUM 8.9 mg/dL (8.5-10.1); CREATININE 1.2 mg/dL (0.6-1.3); POTASSIUM 4.4 mmol/L (3.5-5.1)
[2021-04-05 08:32] VITALS: BP 118/76
[2021-04-05] MEDS: PREGABALIN 25 MG CAPSULE PO SCH ×3 (08:45→16:19)
--- NOTE | 2021-04-05 10:00 | NUR ---
RN NOTES PT C/O BURNING AND SHARP PAIN ON BLE WOUND SITES, 9/10 SCALE, PRN DILAUDID 2MG IVP ADMINISTERED AT 0954. WILL CONTINUE TO MONITOR AND REASSESS PT.
--- NOTE | 2021-04-05 11:09 | NUR ---
WOUND CARE: KCI VAC FUNCTIONING WELL AT 125mmHg CONTINUOUS SETTING WITH 450cc IN CANISTER. NEW CANISTER ORDERED FROM [facility] TO BE CHANGED BY RN. DISCUSSED WITH NURSING STAFF.
--- NOTE | 2021-04-05 12:53 | NUR ---
RN NOTES PT FOR RLE WOUND EXCISION AND DEBRIDEMENT AND WOUND VAC REAPPLICATION TOMORROW IN [facility]. BY DR ESPINOZA. ALL CONSENTS SIGNED AND FILED IN HIS CHART. WILL ENDORSE
--- NOTE | 2021-04-05 13:09 | NUR ---
RN NOTES PT C/O BURNING AND SHARP PAIN ON BLE WOUND SITES, 9/10 SCALE, PRN DILAUDID 2MG IVP ADMINISTERED AT 1307. WILL CONTINUE TO MONITOR AND REASSESS PT.
[2021-04-05] MEDS: FLUCONAZOLE (100 MG) 100 MG TABLET PO SCH (14:07)
[2021-04-05 15:48] VITALS: BP 118/76
[2021-04-05] MEDS: VANCOMYCIN 1 GM in IV D5W 250 ML IV SCH (17:03)
--- NOTE | 2021-04-05 18:45 | NUR ---
RN NOTES PT COMPLAINED OF BURNING AND SHARP PAIN ON BLE WOUND SITES, 9/10 SCALE, PRN DILAUDID 2MG IVP ADMINISTERED AT 1619. WILL CONTINUE TO MONITOR AND REASSESS PT.
--- NOTE | 2021-04-05 18:46 | NUR ---
MS RN CLOSING NOTES PT IN BED WATCHING TV AT THIS TIME. A/O X4. ABLE TO VERBALIZE NEEDS. PT FOR EXCISIONAL WOUND DEBRIDEMENT, WASHOUT AND REAPPLICATION OF WOUND VAC FOR THE RIGHT LOWER EXTREMITY TOMORROW (Friday 04/06) . NPO TO BE ENFORCED POST MIDNIGHT, PT IS AWARE. ON ROOM AIR, RESPIRATIONS EVEN AND UNLABORED, NO SOB NOTED DURING THE DAY. JESS PICC LINE INTACT, PATENT AND FLUSHES WELL. WOUND VAC IN PROGRESS AT 125MMHG CONTINUOUS TO RLE WOUND WITH SEROSANGUINEOUS DRAINAGE NOTED. BETTS IN PLACE, DRAINING CLEAR YELLOW URINE OUTPUT VIA GRAVITY, BETTS CARE DONE. SAFETY MEASURES IN PLACE: BED IN LOWEST LOCKED POSITION, S/R UP X2 AND CALL LIGHT WITHIN REACH. WILL ENDORSE JAMEY TO THE NEXT SHIFT NURSE.
--- NOTE | 2021-04-05 19:40 | NUR ---
RN ms opening notes Received Pt from morning nurse. Pt is sitting in bed comfortably watching TV. Pt is alert and orientedX4. Respiration is normal in room air. No SOB. No s/s of distress noted. Harris cath is draining yellow urine. wound vac is intact and in progress 125 mmhg with continuous to RLE wound with serous sanguinese drainaige. JESS piccline is clean, intact and flushes easily. Explained and informed Pt that Pt will be NPO after midnight for procedure tomorrow. Pt verbalized understanding. Safety precautions is maintained. Bed at low position, brakes locked, side rails upX2, call light is within reach, bed alarm is on. Will continue to monitor.
[2021-04-05 19:52] VITALS: BP 116/84
--- NOTE | 2021-04-05 19:57 | NUR ---
RN ms notes Pt is complaining of pain on L and R leg 10/10 on pain scale and requesting pain meds. Administered dilaudid 2 mg as ordered for pain. VS is table. Safety precautions is maintained. Will continue to monitor.
[2021-04-05 20:00] VITALS: BP 116/84
[2021-04-05 23:30] VITALS: BP 123/88
[2021-04-06] MEDS: METRONIDAZOLE 500 MG TABLET PO SCH ×4 (02:16→23:03)
--- NOTE | 2021-04-06 02:22 | NUR ---
RN ms notes Wound care provided as ordered. Pt tolerated activity well.
[2021-04-06] MEDS: HYDROMORPHONE INJ 2 MG/ML DISP.SYRIN IV PRN ×6 (02:36→19:52)
--- NOTE | 2021-04-06 02:36 | NUR ---
RN ms notes Pt is complaining of pain on L and R leg. Administered dilaudid 2 mg/iv push as ordered for pain 10/10 on pain scale. VS is stable. Safety precautions is maintained. Will continue to monitor.
[2021-04-06] MEDS: CEFEPIME 2 GM in IV D5W 100 ML IV SCH ×2 (04:00→16:41)
--- NOTE | 2021-04-06 06:48 | NUR ---
RN ms closing notes Pt is resting in bed comfortably. Pt is alert and orientedX4. Respiration is normal in room air. No SOB. No s/s of distress noted. VS is stable. Routine meds were given as ordered including pain meds for pain management. Harris cath is draining yellow urine 700ml. wound vac is intact and in progress 125 mmhg with continuous to RLE wound with serous sanguinese drainaige. Wound care provided as ordered. JESS piccline is clean, intact and flushes easily. Pt status is NPO procedure debriment Pt verbalized understanding. Safety precautions is maintained. Bed at low position, brakes locked, side rails upX2, call light is within reach, bed alarm is on. Will endorse to morning nurse for JAMEY.
[2021-04-06 07:21] LABS: CALCIUM, SERUM 9.2 mg/dL (8.5-10.1); CREATININE 1.2 mg/dL (0.6-1.3); POTASSIUM 4.1 mmol/L (3.5-5.1)
[2021-04-06] MEDS: PANTOPRAZOLE 40 MG TABLET.DR PO SCH (07:30)
--- NOTE | 2021-04-06 07:40 | NUR ---
RN OPENING NOTES Patient seen comfortably lying in bed, no apparent distress noted, no SOB, breathing even and unlabored, denies any pain or discomfort at this time. Safety precautions in place, brakes locked, side rails up X 2, call light left within reach, will monitor closely for any changes.
[2021-04-06] MEDS: NEPRO VAN 237 ML CAN PO SCH (08:00)
[2021-04-06] MEDS ORDERED: ANESTHESIA TRAY IN PYXIS 1 EA TRAY MC ONE (08:24)
[2021-04-06 08:35] VITALS: BP 124/84
[2021-04-06] MEDS ORDERED: LIDOCAINE 0.5%-EPI 1:200,000 50 ML VIAL ONE (08:46)
[2021-04-06] MEDS ORDERED: LIDOCAINE 1% INJ 50 ML MDV IJ ONE (08:46)
[2021-04-06] MEDS: PREGABALIN 25 MG CAPSULE PO SCH ×3 (09:00→16:41)
[2021-04-06] MEDS ORDERED: POLYMYXIN B SULFATE 0 UNITS ONE (09:20)
[2021-04-06] MEDS ORDERED: BUPIVACAINE 0.5 % PF 150 MG/30 ML VIAL ONE (10:04)
[2021-04-06] MEDS ORDERED: HYDROMORPHONE 1 MG/1 ML DISP.SYRIN ONE (11:34)
--- NOTE | 2021-04-06 12:40 | NUR ---
Patient back from surgery, S/P excisional wound debridement, washout and wound vac reapplication on RLE. Received patient awake, able to make needs known, can follow simple commands. Denies any pain or discomfort at this time, no nausea, no vomiting, breathing even and unlabored. Wound vac at RLE intact on 125mmhg continuous setting, no excessive bleeding noted, bilateral lower extremities elevated with pillow. Call light left within reach, will monitor closely for any changes.
[2021-04-06] MEDS: FLUCONAZOLE (100 MG) 100 MG TABLET PO SCH (13:43)
[2021-04-06] MEDS: ENSURE ENLIVE CHOC 237 ML CAN PO SCH (15:31)
[2021-04-06 16:34] VITALS: BP 121/81
[2021-04-06] MEDS: VANCOMYCIN 1 GM in IV D5W 250 ML IV SCH (18:25)
--- NOTE | 2021-04-06 18:35 | NUR ---
RN CLOSING NOTES Patient lying in bed, AO X 3-4, able to make needs known, can follow simple commands. Respirations even and unlabored, no SOB, remained afebrile, no apparent distress noted, no dizziness, no palpitations noted at this time. All medications given per MD order, tolerating well. Pain medication given per MD order, tolerating well. S/P excisional wound debridement, washout and wound vac reapplication on RLE, no excessive bleeding, no s/s of infection at this time, kept bilateral lower extremities elevated. Also patient S/P aaron catheter removal, no hematuria, denies any bladder pain or discomfort, bladder non distended during shift. All needs attended, kept clean and dry, safety precautions in place, brakes locked, side rails up X 2, call light left within reach, will endorse to next shift for continuity of care.
--- NOTE | 2021-04-06 19:12 | NUR ---
RN NOTES Patient lying in bed, AO X 3-4, able to make needs known, can follow simple commands. Respirations even and unlabored, no SOB, afebrile, no apparent distress noted, no dizziness, no palpitations noted at this time. S/P excisional wound debridement, washout and wound vac reapplication on RLE, no excessive bleeding, no s/s of infection at this time, kept bilateral lower extremities elevated at this time. patient S/P aaron catheter removal, no hematuria, denies any bladder pain or discomfort. All needs attended, kept clean and dry, safety precautions in place, brakes locked, side rails up X 2, call light left within reach, will continue to monitor.
--- NOTE | 2021-04-06 19:52 | NUR ---
RN NOTES PT REPORTED 10/10 PAIN PRN DILAUDID GIVEN AND TOLERATED WELL WILL CONTINUE TO MONITOR.
[2021-04-06 20:00] VITALS: BP 111/74
[2021-04-07] MEDS: TEMAZEPAM 15 MG CAPSULE PO PRN (00:21)
[2021-04-07] MEDS: HYDROMORPHONE INJ 2 MG/ML DISP.SYRIN IV PRN ×6 (01:19→19:57)
--- NOTE | 2021-04-07 01:19 | NUR ---
RN NOTES PT REPORTED PAIN 10/10 ON A NUMERIC PAIN SCALE PRN DILAUDID PROVIDED AND TOLERATED WELL.
--- NOTE | 2021-04-07 03:17 | NUR ---
RN NOTES PRN DILAUDID GIVEN PT REPORTED PAIN 10/10 ON A NUMERIC PAIN SCALE WILL CONTINUE TO MONITOR.
[2021-04-07] MEDS: CEFEPIME 2 GM in IV D5W 100 ML IV SCH ×2 (04:28→16:16)
[2021-04-07 06:33] LABS: BASOPHILS % (AUTO) 0.3 % (0.0-2.0); HEMATOCRIT 28 % (39-51); HEMOGLOBIN 9.1 g/dL (13.5-17.5); LYMPHOCYTES # (AUTO) 1.9 K/uL (0.8-4.8); LYMPHOCYTES % (AUTO) 14.7 % (20.0-44.0); MEAN CORPUSCULAR HGB CONC 33 g/dl (31.0-36.0); MEAN CORPUSCULAR VOLUME 89 fL (80-96); MONOCYTES # (AUTO) 0.9 K/uL (0.1-1.30); MONOCYTES % (AUTO) 6.8 % (2.0-12.0); NEUTROPHILS # (AUTO) 10.2 K/uL (1.8-8.9); NEUTROPHILS % (AUTO) 78.2 % (43.0-81.0); PLATELET COUNT (AUTO) 466 K/uL (150-450); RED BLOOD CELL COUNT(AUTO) 3.11 MIL/uL (4.5-6.0); WHITE BLOOD COUNT (AUTO) 13.1 K/uL (4.3-11.0)
--- NOTE | 2021-04-07 07:30 | NUR ---
RN OPENING NOTES Patient seen comfortably lying in bed, respirations even and unlabored, no apparent distress noted, no SOB, denies any pain or discomfort at this time. Safety precautions in place, brakes locked, side rails up X 2, call light left within reach, will monitor closely for any changes.
[2021-04-07 07:43] LABS: CALCIUM, SERUM 8.8 mg/dL (8.5-10.1); CREATININE 1.4 mg/dL (0.6-1.3); MAGNESIUM 1.9 mg/dL (1.8-2.4); POTASSIUM 4.5 mmol/L (3.5-5.1)
[2021-04-07 08:00] VITALS: BP 125/79
[2021-04-07] MEDS: PREGABALIN 25 MG CAPSULE PO SCH ×3 (08:16→16:16)
[2021-04-07] MEDS: ENSURE ENLIVE CHOC 237 ML CAN PO SCH ×2 (08:17→16:16)
[2021-04-07] MEDS: PANTOPRAZOLE 40 MG TABLET.DR PO SCH (08:18)
--- NOTE | 2021-04-07 08:31 | NUR ---
WOUND CARE: KCI VAC FUNCTIONING WELL TO RT LOWER EXTREMITY AT 125mmHg CONTINUOUS SETTING WITH MINIMAL RED DRAINAGE IN CANISTER AT THIS TIME. BACK ABRASIONS ARE NOW HEALED. DISCUSSED SKIN PROTECTION AND RECOMMENDATIONS FOR WOUND CARE AT DISCHARGE WITH NURSING STAFF. MD IN AGREEMENT WITH PLAN OF CARE.
[2021-04-07] MEDS: METRONIDAZOLE 500 MG TABLET PO SCH ×2 (12:37→18:05)
[2021-04-07] MEDS ORDERED: oxyCODONE HCL SR 20MG TAB.SR.12H PO SCH (14:30)
[2021-04-07] MEDS ORDERED: NALOXONE HCL 0.4 MG/ML AMPUL IV PRN (14:30)
[2021-04-07] MEDS: FLUCONAZOLE (100 MG) 100 MG TABLET PO SCH (14:49)
[2021-04-07 16:00] VITALS: BP 124/80
--- NOTE | 2021-04-07 16:34 | NUR ---
Patient to be discharged home today, no apparent distress noted, pain medication given per MD order noted with help. Patient made aware of the situation, he signed all discharge paperworks, all belongings taken, inventory list signed by patient. Health teaching provided and was also informed about new (antibiotics) medications prescribed for him, verbalized understanding and gratitude. Skin intact, warm to touch, no pallor or cyanosis noted. Patient preferred not to have pictures of mid back, left and right lower extremity at this time, explained the protocol for patient still refused, respected patient wishes. However, patient agreed to have wound vac changed. Patient had a wound vac machine and supplies delivered at 1830 today, wound vac changed and set to 125mmhg continuously, no air leaks at this time, wound vac was draining well, no unusual odor noted. Patient's wound vac that was used in the hospital placed in the dirty side of utility room, will call for machine operator picker. Transportation did not show up during shft, properly endorsed to next shift. Also patient discharging to [facility], report given to Olga FONG [phone].
[2021-04-07] MEDS ORDERED: VANCOMYCIN 0.75 GM in IV D5W 250 ML IV SCH (18:00)
[2021-04-07] MEDS ORDERED: IV NS 0.9% 1,000 ML IV ONE (18:00)
--- NOTE | 2021-04-07 19:33 | NUR ---
RN CLOSING NOTES Patient lying in bed, AO X 3-4, breathing even and unlabored, remained afebrile, no apparent distress noted, no SOB, no dizziness, no palpitations noted at this time. All medications given per MD order, tolerating well. Pain medication given per MD order, tolerating well. Patient S/P aaron catheter removal, no hematuria, denies any bladder pain or discomfort, bladder non distended during shift, able to urinate using the urinal. He is also S/P excisional wound debridement, washout and wound vac reapplication on RLE on 04/06/21, no excessive bleeding, no s/s of infection at this time, kept bilateral lower extremities elevated. All needs attended, kept clean and dry, safety precautions in place, brakes locked, side rails up X 2, call light left within reach, will endorse to next shift for continuity of care.
--- NOTE | 2021-04-07 20:20 | NUR ---
MS RN NOTES RECEIVED ON BED A/O X4,BREATHING REGULAR,NOT IN ANY FORM OF DISTRESS,WOUND VAC IN PLACE WITH SCANTY OUTPUT.WITH JESS PICC LINE INTACT AND PATENT,WILL NOT BE TAKEN OUT,GOING TO SNF WITH 6 WEEKS OF IV ANTIBIOTICS.D/C TO [facility] AWAITING TO BE INDUSTRIAL X RAY OPERATOR BY AMBULANCE FOR TRANSPORT.IN NO ACUTE DISTRESS.
--- NOTE | 2021-04-07 21:07 | NUR ---
MS RN NOTES LEFT THE HOSPITAL VIA AMBULANCE TRANSPORT IN STABLE CONDITION.
== END 2021-04-07 21:07 | DRG 710 ==
LOC: ER 13:53 → MEDSG1 19:16 → TELE1 21:45 → ICU 03-15 11:54 → TELE 03-17 14:25 → MED 03-20 08:55
PROVIDERS: ADMIT Nurse Practitioner Acute Care; ATTEND Nurse Practitioner Acute Care
PROC: 0KNS0ZZ Release Right Lower Leg Muscle, Open Approach (ICD-10-PCS; principal; 2021-03-15)
PROC: 0KNS0ZZ Release Right Lower Leg Muscle, Open Approach (ICD-10-PCS; 2021-03-15)
PROC: 0QBH0ZZ Excision of Left Tibia, Open Approach (ICD-10-PCS; 2021-03-15)
PROC: 05HM33Z Insertion of Infusion Device into Right Internal Jugular Vein, Percutaneous Approach (ICD-10-PCS; 2021-03-15)
PROC: B543ZZA Ultrasonography of Right Jugular Veins, Guidance (ICD-10-PCS; 2021-03-15)
PROC: 5A1D70Z Performance of Urinary Filtration, Intermittent, Less than 6 Hours Per Day (ICD-10-PCS; 2021-03-15)
PROC: 02HV33Z Insertion of Infusion Device into Superior Vena Cava, Percutaneous Approach (ICD-10-PCS; 2021-03-16)
PROC: B548ZZA Ultrasonography of Superior Vena Cava, Guidance (ICD-10-PCS; 2021-03-16)
PROC: 30233N1 Transfusion of Nonautologous Red Blood Cells into Peripheral Vein, Percutaneous Approach (ICD-10-PCS; 2021-03-16)
PROC: 0KNS0ZZ Release Right Lower Leg Muscle, Open Approach (ICD-10-PCS; 2021-03-18)
PROC: 0KNS0ZZ Release Right Lower Leg Muscle, Open Approach (ICD-10-PCS; 2021-03-18)
PROC: 0KNS0ZZ Release Right Lower Leg Muscle, Open Approach (ICD-10-PCS; 2021-03-18)
PROC: 0KNS0ZZ Release Right Lower Leg Muscle, Open Approach (ICD-10-PCS; 2021-03-18)
PROC: 0KBS0ZZ Excision of Right Lower Leg Muscle, Open Approach (ICD-10-PCS; 2021-03-23)
PROC: 0KBS0ZZ Excision of Right Lower Leg Muscle, Open Approach (ICD-10-PCS; 2021-03-26)
PROC: 0QBG0ZZ Excision of Right Tibia, Open Approach (ICD-10-PCS; 2021-03-26)
PROC: 0QBH0ZZ Excision of Left Tibia, Open Approach (ICD-10-PCS; 2021-03-26)
PROC: 0KBS0ZZ Excision of Right Lower Leg Muscle, Open Approach (ICD-10-PCS; 2021-03-30)
PROC: 0QBG0ZZ Excision of Right Tibia, Open Approach (ICD-10-PCS; 2021-03-30)
PROC: 05H633Z Insertion of Infusion Device into Left Subclavian Vein, Percutaneous Approach (ICD-10-PCS; 2021-03-31)
PROC: B547ZZA Ultrasonography of Left Subclavian Vein, Guidance (ICD-10-PCS; 2021-03-31)
PROC: 0QBG0ZZ Excision of Right Tibia, Open Approach (ICD-10-PCS; 2021-04-02)
PROC: 0KBS0ZZ Excision of Right Lower Leg Muscle, Open Approach (ICD-10-PCS; 2021-04-02)
PROC: 0QBG0ZZ Excision of Right Tibia, Open Approach (ICD-10-PCS; 2021-04-06)
PROC: 0KBS0ZZ Excision of Right Lower Leg Muscle, Open Approach (ICD-10-PCS; 2021-04-06)
DX: A41.9 Sepsis, unspecified organism (principal); J96.00 Acute respiratory failure, unspecified whether with hypoxia or hypercapnia; K72.00 Acute and subacute hepatic failure without coma; M72.6 Necrotizing fasciitis; J69.0 Pneumonitis due to inhalation of food and vomit; N17.0 Acute kidney failure with tubular necrosis; S36.119A Unspecified injury of liver, initial encounter; M60.062 Infective myositis, left lower leg; E87.2 Acidosis; R65.20 Severe sepsis without septic shock; E87.1 Hypo-osmolality and hyponatremia; E44.0 Moderate protein-calorie malnutrition; L03.115 Cellulitis of right lower limb; E87.5 Hyperkalemia; L03.116 Cellulitis of left lower limb; N18.9 Chronic kidney disease, unspecified; F17.210 Nicotine dependence, cigarettes, uncomplicated; F41.9 Anxiety disorder, unspecified; M62.82 Rhabdomyolysis; Z99.2 Dependence on renal dialysis; R74.01 Elevation of levels of liver transaminase levels; Z91.19 Patient's noncompliance with other medical treatment and regimen; D64.9 Anemia, unspecified; F15.10 Other stimulant abuse, uncomplicated; F11.10 Opioid abuse, uncomplicated; M86.8X6 Other osteomyelitis, lower leg; Z68.1 Body mass index [BMI] 19.9 or less, adult; T79.A21A Traumatic compartment syndrome of right lower extremity, initial encounter; X58.XXXA Exposure to other specified factors, initial encounter; Y93.9 Activity, unspecified; Y92.89 Other specified places as the place of occurrence of the external cause; Z20.822 Contact with and (suspected) exposure to COVID-19; B19.20 Unspecified viral hepatitis C without hepatic coma; D50.9 Iron deficiency anemia, unspecified; D75.839 Thrombocytosis, unspecified; G62.9 Polyneuropathy, unspecified; L02.416 Cutaneous abscess of left lower limb
CPT/HCPCS: 31720; 36410; 36415; 36569; 36600; 71045-TC; 73700-TC; 80048-TC; 80053-TC; 80061-TC; 80074; 80076-TC; 80202-TC; 81001; 82550-TC; 82553; 82962-TC; 83540-TC; 83605-TC; 83735-TC; 83874; 83970; 84100-TC; 84443-TC; 85025-TC; 85027-TC; 85610-TC; 85730-TC; 86704; 86705; 86706; 86803; 86850-TC; 87040-TC; 87070-TC; 87075-TC; 87081-TC; 87186-TC; 87340; 87522; 87806; 88304-TC; 90935-TC; 92521; 92526; 93307-TC; 93971-TC; 94003-TC; 94760-TC; A4217; A4649; A6209; A6253; A6403; C1750; C1769; C9803; G0378; J0330; J0610; J0690; J0692; J0696; J1100; J1170; J1644; J1815; J1885; J1940; J2248; J2250; J2270; J2370; J2405; J2543; J2704; J2765; J2916; J3010; J3370; J3475; J3480; J3490; J7030; J7042; J7050; J7060; J7120; P9016; U0003